=== PATIENT | male | born 1955 | race Two or more races ===

== ENCOUNTER 2020-07-18 13:08 | Inpatient (IN) | payer MEDICARE, OTHER ==
[~2020-07-18] VITALS: Ht 177.8 cm; Wt 90.7 kg
[2020-07-18] MEDS ORDERED: Z GUARD REMEDY PASTE 57 GM TUBE TOP PRN (16:30)
[2020-07-18] MEDS ORDERED: ASPI81TA31 PO (16:38)
[2020-07-18] MEDS ORDERED: MEMA28CA5 PO (16:38)
[2020-07-18] MEDS ORDERED: RISP1TAB97 PO (16:38)
[2020-07-18] MEDS ORDERED: FLUT1BLS IH (16:38)
[2020-07-18] MEDS ORDERED: DONE5TAB34 PO (16:38)
[2020-07-18] MEDS ORDERED: CARV12.52 PO (16:38)
[2020-07-18] MEDS ORDERED: FINA5TAB3 PO (16:38)
[2020-07-18] MEDS ORDERED: TAMS-3 PO (16:38)
[2020-07-18] MEDS ORDERED: PANT40TA49 PO (16:38)
[2020-07-18] MEDS ORDERED: AMLO10TA59 PO (16:38)
[2020-07-18] MEDS ORDERED: METF-440 PO (16:38)
[2020-07-18] MEDS ORDERED: ESCI20TA PO (16:38)
[2020-07-18] MEDS ORDERED: DAPA5TAB PO (16:38)
[2020-07-18] MEDS ORDERED: DULA0.75 SQ (16:38)
[2020-07-18 16:39] VITALS: BP 102/57
--- NOTE | 2020-07-18 17:44 | NUR ---
Admitted a 64 years old male pt. from [facility] ambulance at 1615. Pt. A/Ox1-2, responsive to verbal and tactile stimuli, lethargic/sleepy upon arrival. V/S taken per unit policy, pt currently on 2LPM via NC with SpO2 of 96%. Pt. is Qatari speaking but able to understand and respond simple Kazakh. Skin assessment completed, noted with bilateral upper extremity bruising, but otherwise skin is intact. Pt. oriented to unit and staff but requires re-enforcement. Belongings noted with KEG RAISER, brought in clothes, shoes, belt, wallet (NO BRITTON). Safety measures in place. Call light and all frequently used items within pt. reach. Will endorse to oncoming shift accordingly.
--- NOTE | 2020-07-18 19:30 | NUR ---
Received Pt in bed. Alert and oriented x1. O2 at 2 lpm via NC. No complaints presented. Safety and comfort provided. Call light within reach. Will continue to monitor.
[2020-07-18 20:00] VITALS: BP 106/61
[2020-07-18] MEDS: TAMSULOSIN HCL 0.4 MG CAP.SR.24H PO SCH (21:02)
[2020-07-18] MEDS: DONEPEZIL 5 MG TABLET PO SCH (21:02)
[2020-07-18] MEDS: risperiDONE 1 MG TABLET PO SCH (21:02)
[2020-07-19 04:00] VITALS: BP 125/67
--- NOTE | 2020-07-19 06:30 | NUR ---
No acute distress noted. Call light within reach. Safety and comfort provided.
[2020-07-19 07:11] LABS: BASOPHILS % (AUTO) 0.4 % (0.0-2.0); EOSINOPHILS # (AUTO) 0.1 K/uL (0.0-0.7); EOSINOPHILS % (AUTO) 1.3 % (0.0-7.0); HEMATOCRIT 35.3 % (36.7-47.1); LYMPHOCYTES # (AUTO) 2.3 K/uL (20.0-40.0); LYMPHOCYTES % (AUTO) 40.3 % (20.5-51.5); MEAN CORPUSCULAR HGB CONC 34 g/dL (32.5-36.3); MEAN CORPUSCULAR VOLUME 102.7 fL (73.0-96.2); MONOCYTES # (AUTO) 0.8 K/uL (2.0-10.0); MONOCYTES % (AUTO) 13.9 % (0.0-11.0); NEUTROPHILS # (AUTO) 2.6 K/uL (1.8-8.9); NEUTROPHILS % (AUTO) 44.1 % (38.5-71.5); PLATELET COUNT (AUTO) 216 K/uL (152-348); RED BLOOD CELL COUNT(AUTO) 3.43 MIL/uL (4.06-5.63); WHITE BLOOD COUNT (AUTO) 5.8 K/uL (3.6-10.2)
[2020-07-19 07:43] LABS: CREATININE 0.9 mg/dL (0.6-1.3); POTASSIUM 3.5 mmol/L (3.5-5.1)
[2020-07-19] MEDS: PANTOPRAZOLE SODIUM 40 MG TABLET.DR PO SCH (08:18)
[2020-07-19] MEDS: ASPIRIN 81 MG TAB.CHEW PO SCH (08:19)
[2020-07-19] MEDS: METFORMIN HCL 500 MG TABLET PO SCH ×3 (08:19→17:04)
[2020-07-19] MEDS: MEMANTINE HCL 10 MG TABLET PO SCH ×2 (08:19→17:04)
[2020-07-19] MEDS: ESCITALOPRAM OXALATE 10 MG TABLET PO SCH (08:20)
[2020-07-19] MEDS: FINASTERIDE 5 MG TABLET PO SCH (08:20)
[2020-07-19] MEDS: CARVEDILOL 12.5 MG TABLET PO SCH ×2 (08:20→17:04)
[2020-07-19] MEDS: AMLODIPINE 10 MG TABLET PO SCH (08:20)
[2020-07-19] MEDS: FLUTICASONE/VILANTEROL 1 EACH BLST.W.DEV IH SCH (08:23)
[2020-07-19 08:46] VITALS: BP 139/62
[2020-07-19] MEDS ORDERED: Dapagliflozin Propanediol (Farxiga) 5 MG) PO SCH (09:00)
[2020-07-19] MEDS ORDERED: Medication Not On Formulary EA (Memantine HCl (Memantine HCl ER) 28 MG) PO SCH (09:00)
[2020-07-19 15:42] VITALS: BP 125/69
--- NOTE | 2020-07-19 18:30 | NUR ---
Patient remains alert, oriented x 1-2, not in any form of distress, on 2 LPM oxygen via nasal cannula. He denies any pain or discomfort. Patient is compliant with medications and tolerated well. Assisted with his needs promptly. Safety measures and fall precaution observed. Call light and frequently used items placed within patient's reach.
[2020-07-19 20:13] VITALS: BP 118/64
[2020-07-19] MEDS: risperiDONE 1 MG TABLET PO SCH (20:39)
[2020-07-19] MEDS: DONEPEZIL 5 MG TABLET PO SCH (20:39)
[2020-07-19] MEDS: TAMSULOSIN HCL 0.4 MG CAP.SR.24H PO SCH (20:39)
[2020-07-20 04:00] VITALS: BP 133/75
--- NOTE | 2020-07-20 04:00 | NUR ---
Received pt lying in bed, no acute distress noted. Patient is South Sudanese speaking AXOx2, spoke to pt in South Sudanese, Very forgetful needs constant reorientation. Keeps trying to get out of bed to use the restroom very unsteady gait. Assisted pt to the bathroom. All due medications administered and tolerated well. On 2L PRN NC saturation @ 97%. VVS, denies any pain or discomfort at the moment. Safety measures and fall precaution observed. Bed alarm on. Frequent rounds completed. Call light and frequently used items placed within patient's reach. Will continue plan of care
[2020-07-20 08:00] VITALS: BP 115/77
[2020-07-20] MEDS: PANTOPRAZOLE SODIUM 40 MG TABLET.DR PO SCH (09:03)
[2020-07-20] MEDS: FINASTERIDE 5 MG TABLET PO SCH (09:04)
[2020-07-20] MEDS: ESCITALOPRAM OXALATE 10 MG TABLET PO SCH (09:04)
[2020-07-20] MEDS: METFORMIN HCL 500 MG TABLET PO SCH ×3 (09:04→17:46)
[2020-07-20] MEDS: ASPIRIN 81 MG TAB.CHEW PO SCH (09:05)
[2020-07-20] MEDS: CARVEDILOL 12.5 MG TABLET PO SCH ×2 (09:05→16:07)
[2020-07-20] MEDS: AMLODIPINE 10 MG TABLET PO SCH (09:05)
[2020-07-20] MEDS: MEMANTINE HCL 10 MG TABLET PO SCH ×2 (09:06→16:07)
[2020-07-20] MEDS: FLUTICASONE/VILANTEROL 1 EACH BLST.W.DEV IH SCH (09:07)
[2020-07-20 09:53] LABS: THYROID STIMULATING HORMONE 1.333 mIU/mL (0.358-3.740)
[2020-07-20] MEDS ORDERED: FUROSEMIDE 40 MG TABLET PO ONE (14:30)
--- NOTE | 2020-07-20 15:07 | NUR ---
patient noted very restless since morning, trying to get out of bed constantly, kept clean and dry, fluids offered, patient noted with heavy breathing, however saturating at 93% at 2 liter of nasal canula, noted with pitting edema +1 to both lower extremities, CELL POURER Nilsa is aware.
[2020-07-20 16:00] VITALS: BP 109/62
[2020-07-20] MEDS ORDERED: QUETIAPINE FUMARATE 25 MG TABLET PO ONE (16:30)
[2020-07-20] MEDS: NICOTINE 14 MG/24HR PATCH TD SCH (18:47)
[2020-07-20 20:20] VITALS: BP 98/56
[2020-07-20] MEDS: TAMSULOSIN HCL 0.4 MG CAP.SR.24H PO SCH (20:30)
[2020-07-20] MEDS: risperiDONE 1 MG TABLET PO SCH (20:30)
[2020-07-20] MEDS: DONEPEZIL 5 MG TABLET PO SCH (20:30)
[2020-07-21 04:00] VITALS: BP 143/80
--- NOTE | 2020-07-21 07:57 | NUR ---
called lab spoke to Hoang for pending procalcitonin, per marcelo she is gong to call brissa valentine and will call me back.
[2020-07-21 08:09] VITALS: BP 113/56
[2020-07-21] MEDS: FINASTERIDE 5 MG TABLET PO SCH (08:25)
[2020-07-21] MEDS: MEMANTINE HCL 10 MG TABLET PO SCH ×2 (08:25→16:36)
[2020-07-21] MEDS: ASPIRIN 81 MG TAB.CHEW PO SCH (08:25)
[2020-07-21] MEDS: METFORMIN HCL 500 MG TABLET PO SCH ×3 (08:25→16:29)
[2020-07-21] MEDS: ESCITALOPRAM OXALATE 10 MG TABLET PO SCH (08:26)
[2020-07-21] MEDS: CARVEDILOL 12.5 MG TABLET PO SCH ×2 (08:27→16:44)
[2020-07-21] MEDS: AMLODIPINE 10 MG TABLET PO SCH (08:28)
[2020-07-21] MEDS: FLUTICASONE/VILANTEROL 1 EACH BLST.W.DEV IH SCH (08:28)
[2020-07-21] MEDS: PANTOPRAZOLE SODIUM 40 MG TABLET.DR PO SCH (08:33)
[2020-07-21] MEDS: NICOTINE 14 MG/24HR PATCH TD SCH (08:38)
--- NOTE | 2020-07-21 10:00 | NUR ---
patient is up in chair, nonlabored breathing, to his baseline, ate his breakfast with minimum assist, participating with PT, and OT services. no vomiting, no chills or fever noted.
[2020-07-21 15:58] VITALS: BP 118/44
--- NOTE | 2020-07-21 16:10 | NUR ---
noted redness and shiny skin on patient's left antecubital arm. Nilsa Kelley NP noted and ordered for BACTRIM DS 1 tab PO BID for 5 days. Order carried out.
--- NOTE | 2020-07-21 16:49 | NUR ---
patient is n bed, to his baseline, trying to get up from bed by himself, saturating at 93% at 3 liter of o2 via nasal canula, tried incentive spirometer, patient did not follow instructions for spirometer, noted with wet cough during meals, patient is on speech therapy, thickened liquids and aspiration precautions, patient sat up in chair during meals. continue to monitor.
[2020-07-21] MEDS: SULFAMETH/TRIMETH 800/160 MG TABLET PO SCH (16:52)
--- NOTE | 2020-07-21 19:09 | NUR ---
dr martínez made aware about consult
[2020-07-21 20:48] VITALS: BP 103/59
[2020-07-21] MEDS: risperiDONE 1 MG TABLET PO SCH (21:12)
[2020-07-21] MEDS: TAMSULOSIN HCL 0.4 MG CAP.SR.24H PO SCH (21:12)
[2020-07-21] MEDS: DONEPEZIL 5 MG TABLET PO SCH (21:12)
--- NOTE | 2020-07-22 03:47 | NUR ---
AAOx2-3 Compliant with care and meds. Generalized weakness noted. Fall precautions maintained. VSS. Aspiration precautions maintained. On ABT for cellulitis on the left arm. Psych eval to Dr Jordan. On O2 @ 2L via nasal cannula. pulse ox 95%. Incontinent of urine and BM. Kept clean and dry. Will monitor patient.
[2020-07-22 04:00] VITALS: BP 103/58
--- NOTE | 2020-07-22 06:33 | NUR ---
End of shift notes: Slept well most of the shift. Needs attended. Repositioned for comfort. Turned to sides. VSS. Incontinent of urine x3. Will monitor patient.
--- NOTE | 2020-07-22 07:30 | NUR ---
Received pt in bed, arousable to verbal and tactile stimuli, A&Ox1-2. Omani speaking, reorientation and redirection needed. No acute distress noted. Pt on 3 LPM NC, no SOB, respirations even. Aspiration precautions, safety measures, fall precautions in place. Call light and belongings within reach. Will continue to monitor.
[2020-07-22 08:00] VITALS: BP 111/49
[2020-07-22] MEDS: METFORMIN HCL 500 MG TABLET PO SCH ×3 (08:55→18:46)
[2020-07-22] MEDS: ASPIRIN 81 MG TAB.CHEW PO SCH ×2 (08:56→11:47)
--- NOTE | 2020-07-22 10:45 | NUR ---
After physical therapy session, pt noted in bed lethargic, slow to respond to verbal and tactile stimuli. VS taken: BP 138/66, HR 83, Temp 98.1, Resp 20, O2 sat to mid 80s on 3 L NC. HOB elevated, O2 sat improved to 95% on 5 L NC. WAITER/WAITRESS COCKTAIL LOUNGE Nilsa Kelley on unit and aware, new orders given. Will monitor closely.
[2020-07-22] MEDS: FINASTERIDE 5 MG TABLET PO SCH (11:46)
[2020-07-22] MEDS: MEMANTINE HCL 10 MG TABLET PO SCH ×2 (11:47→17:33)
[2020-07-22] MEDS: ESCITALOPRAM OXALATE 10 MG TABLET PO SCH (11:47)
[2020-07-22] MEDS: AMLODIPINE 10 MG TABLET PO SCH (11:50)
[2020-07-22] MEDS: NICOTINE 14 MG/24HR PATCH TD SCH (11:51)
[2020-07-22] MEDS: PANTOPRAZOLE SODIUM 40 MG TABLET.DR PO SCH (11:51)
[2020-07-22] MEDS: CARVEDILOL 12.5 MG TABLET PO SCH ×2 (11:51→17:39)
[2020-07-22] MEDS: FLUTICASONE/VILANTEROL 1 EACH BLST.W.DEV IH SCH (11:52)
[2020-07-22] MEDS: SULFAMETH/TRIMETH 800/160 MG TABLET PO SCH (12:16)
[2020-07-22] MEDS: FUROSEMIDE 20 MG TABLET PO SCH (15:08)
[2020-07-22] MEDS: VANCOMYCIN IV 1,250 MG in IV DEXTROSE 5% 250 ML IV SCH (16:00)
[2020-07-22 16:33] VITALS: BP 115/49
--- NOTE | 2020-07-22 19:30 | NUR ---
EOSS: Pt in bed, awake, A&Ox1-2, able to make simple needs known. No acute distress noted, no SOB. Pt O2 sat 94% on 3 L NC. VSS. R Hand 22 gauge IV started, patent and intact. IV Vancomycin administered per order, no a/r noted. Pt compliant with medications and care, no a/r noted. Frequent redirection and reorientation implemented PRN. Kept pt clean and dry throughout shift. Safety measures, aspiration precautions, fall precautions maintained. Call light within reach. Will endorse care to patent litigation associate.
[2020-07-22] MEDS: DONEPEZIL 5 MG TABLET PO SCH (20:19)
[2020-07-22] MEDS: TAMSULOSIN HCL 0.4 MG CAP.SR.24H PO SCH (20:19)
[2020-07-22] MEDS: risperiDONE 1 MG TABLET PO SCH (20:19)
--- NOTE | 2020-07-22 20:30 | NUR ---
Pt received resting in bed. PT is on 3L NC sating at 91%. Does not appear to be in any distress. Pt pulled out his IV, another attempt to start IV will be made. Bed is locked and in lowest position. No other issues or concerns at this time.
[2020-07-22 21:24] VITALS: BP 110/52
[2020-07-23] MEDS: VANCOMYCIN IV 1,250 MG in IV DEXTROSE 5% 250 ML IV SCH (02:25)
[2020-07-23 06:06] VITALS: BP 109/62
[2020-07-23 07:37] LABS: CREATININE 1.9 mg/dL (0.6-1.3)
[2020-07-23 08:30] VITALS: BP 124/62
[2020-07-23 09:00] VITALS: BP 92/43
[2020-07-23] MEDS: AMLODIPINE 10 MG TABLET PO SCH (09:00)
[2020-07-23] MEDS: CARVEDILOL 12.5 MG TABLET PO SCH (09:00)
--- NOTE | 2020-07-23 09:10 | NUR ---
During PT session, pt appeared disoriented, lethargic, slow to respond to verbal and tactile stimuli. Per PT max assist for activity, O2 desaturation to 85% on 3 L NC while up in chair. VS taken: BP 92/43, HR 72, Temp 98.0, Resp 20, O2 sat to 90% on 4 L NC. 0900 blood pressure medications held. SECURITIES TELLER Nilsa Kelley on unit and aware, pt to be admitted to Telemetry unit. Will monitor pt closely with safety measures, fall precautions, aspiration precautions maintained.
[2020-07-23 09:23] LABS: CREATININE 1.9 mg/dL (0.6-1.3); MAGNESIUM 1.6 mg/dL (1.8-2.4); PHOSPHOROUS 3.8 mg/dL (2.5-4.9); POTASSIUM 4.1 mmol/L (3.5-5.1)
[2020-07-23 09:23] LABS: *BILIRUBIN,URIN NEGATIVE (NEGATIVE); *BLOOD, URINE 2+ (NEGATIVE); *CLARITY,URINE SLIGHTLY CLOUDY (CLEAR); *COLOR,URINE YELLOW (YELLOW); *KETONES,URINE NEGATIVE (NEGATIVE); LEUKOCYTE ESTERASE ,URINE NEGATIVE (NEGATIVE); NITRITE, URINE NEGATIVE (NEGATIVE); PH,URINE 5.5 (5.0-8.0); UGLUCOSE NEGATIVE (NEGATIVE)
[2020-07-23 09:51] LABS: BASOPHILS % (AUTO) 0.5 % (0.0-2.0); HEMATOCRIT 36.5 % (36.7-47.1); HEMOGLOBIN 12.3 g/dL (12.5-16.3); LYMPHOCYTES # (AUTO) 1.2 K/uL (20.0-40.0); LYMPHOCYTES % (AUTO) 14.2 % (20.5-51.5); MEAN CORPUSCULAR HEMOGLOBIN 34.3 uug (23.8-33.4); MEAN CORPUSCULAR HGB CONC 34 g/dL (32.5-36.3); MONOCYTES # (AUTO) 0.7 K/uL (2.0-10.0); MONOCYTES % (AUTO) 8.4 % (0.0-11.0); NEUTROPHILS # (AUTO) 6.3 K/uL (1.8-8.9); NEUTROPHILS % (AUTO) 76.9 % (38.5-71.5); PLATELET COUNT (AUTO) 248 K/uL (152-348); RED BLOOD CELL COUNT(AUTO) 3.58 MIL/uL (4.06-5.63); WHITE BLOOD COUNT (AUTO) 8.2 K/uL (3.6-10.2)
[2020-07-23] MEDS: ASPIRIN 81 MG TAB.CHEW PO SCH (09:57)
[2020-07-23] MEDS: MEMANTINE HCL 10 MG TABLET PO SCH (09:57)
[2020-07-23] MEDS: NICOTINE 14 MG/24HR PATCH TD SCH (09:57)
[2020-07-23] MEDS: ESCITALOPRAM OXALATE 10 MG TABLET PO SCH (09:57)
[2020-07-23] MEDS: PANTOPRAZOLE SODIUM 40 MG TABLET.DR PO SCH (09:57)
[2020-07-23] MEDS: FINASTERIDE 5 MG TABLET PO SCH (09:57)
[2020-07-23] MEDS: METFORMIN HCL 500 MG TABLET PO SCH ×2 (09:57→12:17)
[2020-07-23] MEDS: FUROSEMIDE 20 MG TABLET PO SCH (10:05)
[2020-07-23] MEDS: FLUTICASONE/VILANTEROL 1 EACH BLST.W.DEV IH SCH (10:07)
--- NOTE | 2020-07-23 14:59 | NUR ---
Pt to be admitted to Telemetry unit per ROOM SERVICE BELLHOP Nilsa Kelley with dx of sepsis. Pt continues to appear lethargic, disoriented, but responsive to verbal and tactile stimuli. A&Ox1. Current VS: BP 107/64, HR 73, O2 sat 91 on 2.5 L NC, R 20, temp 98.5. R FA 22 g IV patent and intact. Belongings verified and signed for by 2 RNs. Addendum: 07/23/20 at 1518 by THERESE PAYAN RN RN Wallet contents verified and documented by 2 RNs, no weldon. No cell phone documented on belongings list upon admission, no cell phone with pt.
[2020-07-23] MEDS ORDERED: PIPERACILLIN SODIUM/TAZOBACTAM 3.375 G in IV DEXTROSE 5% 50 ML IV SCH (15:00)
[2020-07-23 15:11] LABS: BACTERIA,URINE FEW /HPF (NONE SEEN); SQUAMOUS EPITHELIAL CELL,UR NONE SEEN /HPF (NONE SEEN); URINE AMORPHOUS URATE MANY /HPF; WBC,URINE 0-3 /HPF (0-3)
[2020-07-23 16:08] LABS: *CREATININE,URINE 199.1 mg/dL (30-125); *URINE TOTAL PROTEIN RANDOM 58.5 mg/dL (<150/24HR)
[2020-07-23] MEDS ORDERED: MEMA10TA PO (17:03)
[2020-07-23] MEDS ORDERED: NICO-671 TP (17:03)
[2020-07-23] MEDS ORDERED: FURO-152 PO (17:03)
[2020-07-23] MEDS ORDERED: ZINC113P3 TP (17:03)
[2020-07-24] MEDS ORDERED: VANCOMYCIN IV 1,250 MG in IV DEXTROSE 5% 250 ML IV SCH (03:00)
== END 2020-07-23 15:20 | disposition short-term general hospital (02) | DRG 308 ==
PROVIDERS: ADMIT Physical Medicine & Rehabilitation Pain Medicine; ATTEND Physical Medicine & Rehabilitation Pain Medicine
DX: I48.20 Chronic atrial fibrillation, unspecified (principal); A41.9 Sepsis, unspecified organism; J96.00 Acute respiratory failure, unspecified whether with hypoxia or hypercapnia; J18.9 Pneumonia, unspecified organism; D68.59 Other primary thrombophilia; E44.0 Moderate protein-calorie malnutrition; L03.114 Cellulitis of left upper limb; G93.40 Encephalopathy, unspecified; N17.9 Acute kidney failure, unspecified; N39.0 Urinary tract infection, site not specified; J44.0 Chronic obstructive pulmonary disease with (acute) lower respiratory infection; R53.1 Weakness; D69.59 Other secondary thrombocytopenia; E11.9 Type 2 diabetes mellitus without complications; F03.90 Unspecified dementia, unspecified severity, without behavioral disturbance, psychotic disturbance, mood disturbance, and anxiety; F10.10 Alcohol abuse, uncomplicated; R62.7 Adult failure to thrive; Z20.822 Contact with and (suspected) exposure to COVID-19; I10 Essential (primary) hypertension; T80.29XD Infection following other infusion, transfusion and therapeutic injection, subsequent encounter; D64.9 Anemia, unspecified; F17.210 Nicotine dependence, cigarettes, uncomplicated; N40.0 Benign prostatic hyperplasia without lower urinary tract symptoms; Z68.28 Body mass index [BMI] 28.0-28.9, adult; Z91.81 History of falling; K21.9 Gastro-esophageal reflux disease without esophagitis; G62.9 Polyneuropathy, unspecified
CPT/HCPCS: 36415; 71045; 83735; 83921; 84100; 84156; 84300; 84443; 85025; 87040; C1758; J2543; J7050; J7060

== ENCOUNTER 2020-07-23 15:29 | Inpatient (IN) | payer MEDICARE, OTHER ==
[~2020-07-23] VITALS: Ht 177.8 cm; Wt 90.7 kg
[~2020-07-23 15:29] MED LIST: AMLO10TA59 PO; ASPI81TA31 PO; CARV12.52 PO; DAPA5TAB PO; DONE5TAB34 PO; DULA0.75 SQ; ESCI20TA PO; FINA5TAB3 PO; FLUT1BLS IH; MEMA28CA5 PO; METF-440 PO; PANT40TA49 PO; RISP1TAB97 PO; TAMS-3 PO
--- NOTE | 2020-07-23 15:45 | NUR ---
Admitted this 64 year old male pt from the [facility] Acute Rehab Unit at 1535. Pt A&Ox1, appears lethargic and disoriented but responsive to verbal and tactile stimuli. Namibian speaking, able to respond to simple commands in Russian. VS taken: BP 123/66, HR 77, Resp Rate 20, Temp 98.5. Pt currently on 3.0 L via NC with SpO2 of 94%. Skin assessment completed, noted with L arm redness d/t cellulitis per hx and sacral redness. Pt kept clean and dry, repositioned. Pt able to swallow and take fluids per order, compliant with medications. Aspiration precautions in place. Pt oriented to unit, floor, and staff, however frequent redirection and reoriention needed. Belongings verified and signed by 2 RNs: Clothing, shoes, belt, wallet (NO weldon). Wallet contents verified and valuables form signed by 2 RNs, wallet in safe. Safety measures and fall precautions in place. Call light and belongings within reach. Will monitor closely.
[2020-07-23 16:46] VITALS: BP 130/65
[2020-07-23] MEDS ORDERED: ZINC113P3 TP (17:03)
[2020-07-23] MEDS ORDERED: NICO-671 TP (17:03)
[2020-07-23] MEDS ORDERED: FURO-152 PO (17:03)
[2020-07-23] MEDS ORDERED: MEMA10TA PO (17:03)
[2020-07-23] MEDS ORDERED: IV NS 1000 ML 1,000 ML IV PRN (17:30)
[2020-07-23] MEDS ORDERED: LORAZEPAM 2 MG/1 ML VIAL IV PRN (17:30)
[2020-07-23] MEDS ORDERED: MORPHINE SULFATE 2 MG/1 ML DISP.SYRIN IV PRN (17:30)
[2020-07-23] MEDS ORDERED: ACETAMINOPHEN 325 MG TABLET PO PRN (17:30)
[2020-07-23] MEDS ORDERED: PIPERACILLIN SODIUM/TAZOBACTAM 3.375 G in IV DEXTROSE 5% 50 ML IV SCH (18:00)
[2020-07-23] MEDS: MEMANTINE HCL 10 MG TABLET PO SCH (18:49)
[2020-07-23 20:31] VITALS: BP 103/99
[2020-07-23] MEDS ORDERED: MEROPENEM 500 MG in IV NORMAL SALINE 50 ML IV SCH (21:00)
[2020-07-23] MEDS ORDERED: DOCUSATE SODIUM 250 MG CAPSULE PO SCH (21:00)
[2020-07-23] MEDS ORDERED: MEROPENEM 500 MG in IV NORMAL SALINE 50 ML IV ONE (21:15)
[2020-07-23] MEDS: DONEPEZIL 5 MG TABLET PO SCH (21:31)
[2020-07-23] MEDS: risperiDONE 1 MG TABLET PO SCH (21:31)
[2020-07-23] MEDS: TAMSULOSIN HCL 0.4 MG CAP.SR.24H PO SCH (21:32)
[2020-07-23] MEDS ORDERED: MEROPENEM 500MG/NS 50ML PB ***ER PYXIS ONLY IV ONE (23:01)
[2020-07-24] VITALS: BP 111/61
--- NOTE | 2020-07-24 | NUR ---
Received pt lying in bed, very restless. 1:1 sitter at bedside. Patient is Cypriot speaking AXOx1-2, spoke to pt in Cypriot, Very forgetful needs constant reorientation. Responsive to verbal and tactile stimuli. Keeps trying to removed NC. VVS, NSR on monitor HR79.on 2.5L NC saturating @90. Started 20G heplock RAC, intact and patent running NS @70cc/hr. All due medications administered and tolerated well, crushed with apple sauce. Aspiration precautions in place. Safety measures and fall precaution observed. Bed alarm on. Call light and frequently used items placed within patient's reach. Will continue plan of care.
--- NOTE | 2020-07-24 00:11 | NUR ---
pt is agitated and keeps trying to remove Oxygen mask. Administered ativan 1mg PRN per nursing judgment. will monitor for effectiveness.
[2020-07-24] MEDS ORDERED: VANCOMYCIN IV 1,250 MG in IV DEXTROSE 5% 250 ML IV SCH ×2 (03:00→21:00)
[2020-07-24 04:00] VITALS: BP 110/62
[2020-07-24 06:47] LABS: BASOPHILS % (AUTO) 0.7 % (0.0-2.0); EOSINOPHILS % (AUTO) 0.3 % (0.0-7.0); HEMATOCRIT 36.1 % (36.7-47.1); HEMOGLOBIN 12.2 g/dL (12.5-16.3); LYMPHOCYTES # (AUTO) 1.3 K/uL (20.0-40.0); LYMPHOCYTES % (AUTO) 22.2 % (20.5-51.5); MEAN CORPUSCULAR HEMOGLOBIN 34.1 uug (23.8-33.4); MEAN CORPUSCULAR HGB CONC 34 g/dL (32.5-36.3); MEAN CORPUSCULAR VOLUME 101.3 fL (73.0-96.2); MONOCYTES # (AUTO) 0.7 K/uL (2.0-10.0); MONOCYTES % (AUTO) 11.9 % (0.0-11.0); NEUTROPHILS # (AUTO) 3.9 K/uL (1.8-8.9); NEUTROPHILS % (AUTO) 64.9 % (38.5-71.5); PLATELET COUNT (AUTO) 230 K/uL (152-348); RED BLOOD CELL COUNT(AUTO) 3.56 MIL/uL (4.06-5.63)
[2020-07-24 07:11] LABS: BILIRUBIN,TOTAL 0.4 mg/dL (0.2-1.0); CREATININE 1.5 mg/dL (0.6-1.3); MAGNESIUM 1.8 mg/dL (1.8-2.4); POTASSIUM 3.7 mmol/L (3.5-5.1); TOTAL PROTEIN, SERUM 6.6 g/dL (6.4-8.2)
--- NOTE | 2020-07-24 07:30 | NUR ---
Received patient is bed. Patient is lethargic but does follow some commands. Speech is unclear and their is a slight facial droop. Patient is on 6L facial mask. No sign of distress noted . Titrating down to 2L NC. Safety precautions are in place. Will continue to monitor.
[2020-07-24 08:00] VITALS: BP 119/62
[2020-07-24] MEDS: ESCITALOPRAM OXALATE 10 MG TABLET PO SCH (08:37)
[2020-07-24] MEDS: MEMANTINE HCL 10 MG TABLET PO SCH ×2 (08:37→18:28)
[2020-07-24] MEDS: MEROPENEM 1 G in IV NORMAL SALINE 100 ML IV SCH ×3 (08:37→23:32)
[2020-07-24] MEDS: FLUTICASONE/VILANTEROL 1 EACH BLST.W.DEV IH SCH (08:38)
[2020-07-24] MEDS: PANTOPRAZOLE SODIUM 40 MG TABLET.DR PO SCH (08:38)
[2020-07-24] MEDS: ASPIRIN 81 MG TAB.CHEW PO SCH (08:38)
[2020-07-24] MEDS: NICOTINE 14 MG/24HR PATCH TD SCH (08:38)
[2020-07-24] MEDS: FINASTERIDE 5 MG TABLET PO SCH (08:38)
[2020-07-24] MEDS ORDERED: PANTOPRAZOLE SODIUM 40 MG TABLET.DR PO SCH (09:00)
--- NOTE | 2020-07-24 10:51 | NUR ---
Patient is sedated. Tried arousing to sternal rub. Made MD aware. Patient is schedule to fro MRI of head and brain with and without contrast at [facility] at 1330. Will continue to monitor.
[2020-07-24] MEDS: IV NS 1000 ML 1,000 ML IV SCH (11:59)
[2020-07-24 12:06] LABS: ABG BASE EXCESS -1.1 mmol/L; ABG HCO3 23.3 mmol/L; ABG PCO2 37.9 mmHg (35.0-45.0); ABG PH 7.406 (7.350-7.450); ABG PO2 71.9 mmHg (75.0-100.0); ABG SITE RIGHT RADIAL; ABG TOTAL HEMOGLOBIN 12.5 G/dL (13.5-18.0); COHb 0.7 % (0.5-1.5); MetHb 0.1 % (0.0-1.5); O2Hb 92.4 % (94.0-97.0); VENT MODE Nasal Cannula 2.5L
--- NOTE | 2020-07-24 12:06 | NUR ---
Wound care nurse came to assess patient. discoloration and edema on the buttocks. With some blanching redness on the sacrum. Will apply z-guard and cover with Mepilex. Will continue to monitor.
--- NOTE | 2020-07-24 12:09 | NUR ---
WOUND CARE CONSULT: PT PRESENTS WITH EDEMA AND DISCOLORATION TO BUTTOCKS AND LEFT BUTTOCK OPEN SKIN, PRESENT ON ADMISSION. RECOMMENDATIONS MADE FOR SKIN PROTECTION. DISCUSSED WITH NURSING STAFF. FIRST STEP LOW AIRLOSS MATTRESS ORDERED. IN AGREEMENT WITH PLAN OF CARE. Addendum: 07/24/20 at 1210 by CRISTIANE JASMINE RN Amended: Links added.
--- NOTE | 2020-07-24 14:00 | NUR ---
Used Pharmacist Per Diem phone to help inform patient about MRI and ask question off the checklist since patient is a little more awake now. Jere automation tender # [id number]. Will continue to monitor.
[2020-07-24 15:03] VITALS: BP 107/69
--- NOTE | 2020-07-24 16:01 | NUR ---
Patient is off the floor. Transported via ambulance to [facility] for MRI with and without contrast. Will continue to monitor when back on the floor.
--- NOTE | 2020-07-24 18:27 | NUR ---
Patient back on the floor. Will continue to monitor.
--- NOTE | 2020-07-24 19:28 | NUR ---
Patient is resting in bed. No sig of distress noted. Gave all medications as ordered. Safety measures are in place. Will endorse to oncoming nurse.
[2020-07-24 19:41] VITALS: BP 112/68
[2020-07-24] MEDS: TAMSULOSIN HCL 0.4 MG CAP.SR.24H PO SCH (20:56)
[2020-07-24] MEDS: risperiDONE 1 MG TABLET PO SCH (20:56)
[2020-07-24] MEDS: DONEPEZIL 5 MG TABLET PO SCH (20:56)
[2020-07-24] MEDS: DOCUSATE SODIUM 100 MG CAPSULE PO SCH (20:57)
[2020-07-25] VITALS: BP 115/52
[2020-07-25] MEDS: IV NS 1000 ML 1,000 ML IV SCH (01:20)
[2020-07-25 04:49] VITALS: BP 115/81
--- NOTE | 2020-07-25 05:36 | NUR ---
Patient awake responsive to verbal and tactile stimuli.HOB elevated.Aspiration precaution observed.O2 inhalation at 2LPM via NC saturating at 97 %.No s/s of distress noted.No episodes of agitation or combative behavior through out the shift. Patient is Calm and cooperative.Midline on left upper arm 18g patent and intact.Administered IV ATb as ordered.No a/r noted.Due meds given.IVF running at 75ml/hr tolerated well.Wound care provided on buttocks area.Changed and Repositioned patient. All needs anticipated and met accordingly.VSS
[2020-07-25] MEDS: PANTOPRAZOLE SODIUM 40 MG TABLET.DR PO SCH (06:13)
[2020-07-25 07:02] LABS: BASOPHILS % (AUTO) 0.5 % (0.0-2.0); EOSINOPHILS % (AUTO) 0.5 % (0.0-7.0); HEMATOCRIT 34.2 % (36.7-47.1); HEMOGLOBIN 11.5 g/dL (12.5-16.3); LYMPHOCYTES # (AUTO) 1.6 K/uL (20.0-40.0); MEAN CORPUSCULAR HEMOGLOBIN 33.9 uug (23.8-33.4); MEAN CORPUSCULAR HGB CONC 34 g/dL (32.5-36.3); MEAN CORPUSCULAR VOLUME 101.2 fL (73.0-96.2); MONOCYTES # (AUTO) 0.9 K/uL (2.0-10.0); MONOCYTES % (AUTO) 14.1 % (0.0-11.0); NEUTROPHILS # (AUTO) 3.7 K/uL (1.8-8.9); NEUTROPHILS % (AUTO) 58.9 % (38.5-71.5); PLATELET COUNT (AUTO) 223 K/uL (152-348); RED BLOOD CELL COUNT(AUTO) 3.38 MIL/uL (4.06-5.63); WHITE BLOOD COUNT (AUTO) 6.3 K/uL (3.6-10.2)
[2020-07-25 07:27] VITALS: BP 105/59
[2020-07-25 07:27] LABS: BILIRUBIN,TOTAL 0.4 mg/dL (0.2-1.0); CREATININE 1.2 mg/dL (0.6-1.3); MAGNESIUM 1.6 mg/dL (1.8-2.4); PHOSPHOROUS 2.9 mg/dL (2.5-4.9); POTASSIUM 3.9 mmol/L (3.5-5.1); TOTAL PROTEIN, SERUM 6.3 g/dL (6.4-8.2)
[2020-07-25] MEDS: ESCITALOPRAM OXALATE 10 MG TABLET PO SCH (08:07)
[2020-07-25] MEDS: MEMANTINE HCL 10 MG TABLET PO SCH ×2 (08:07→16:24)
[2020-07-25] MEDS: FINASTERIDE 5 MG TABLET PO SCH (08:07)
[2020-07-25] MEDS: MEROPENEM 1 G in IV NORMAL SALINE 100 ML IV SCH ×2 (08:07→16:18)
[2020-07-25] MEDS: ASPIRIN 81 MG TAB.CHEW PO SCH (08:07)
[2020-07-25] MEDS: NICOTINE 14 MG/24HR PATCH TD SCH (08:07)
[2020-07-25] MEDS: FLUTICASONE/VILANTEROL 1 EACH BLST.W.DEV IH SCH (08:08)
[2020-07-25] MEDS ORDERED: MAGNESIUM OXIDE 400 MG TABLET PO ONE (09:15)
[2020-07-25 11:33] VITALS: BP 115/53
[2020-07-25 11:58] LABS: BAND % (MANUAL) 1 % (0-10); LYMPHOCYTES % (MANUAL) 31 % (20-40); MONOCYTES % (MANUAL) 10 % (2-10); NEUTROPHILS % (MANUAL) 58 % (42-75)
[2020-07-25] MEDS: VANCOMYCIN IV 1,500 MG in IV DEXTROSE 5% 500 ML IV SCH (14:38)
[2020-07-25 15:50] VITALS: BP 125/62
--- NOTE | 2020-07-25 18:30 | NUR ---
MEDICATION GIVEN PRESCRIBED. VSS. 1:1 SITTER AT BEDSIDE. SAFETY PRECAUTIONS IN PLACE. ALL NEEDS MET AT THIS TIME.
[2020-07-25 20:09] VITALS: BP 121/69
[2020-07-25] MEDS: DONEPEZIL 5 MG TABLET PO SCH (21:51)
[2020-07-25] MEDS: risperiDONE 1 MG TABLET PO SCH (21:51)
[2020-07-25] MEDS: DOCUSATE SODIUM 100 MG CAPSULE PO SCH (21:51)
[2020-07-25] MEDS: TAMSULOSIN HCL 0.4 MG CAP.SR.24H PO SCH (21:51)
[2020-07-26 00:06] VITALS: BP 115/56
[2020-07-26] MEDS: MEROPENEM 1 G in IV NORMAL SALINE 100 ML IV SCH ×4 (00:32→23:39)
--- NOTE | 2020-07-26 01:30 | NUR ---
Patient awake responsive resting in bed. Axox3, Macedonian speaking. Spoke to pt in Macedonian, responsive states "feeling better" . All due medication administered and tolerated well crushed with pudding. Aspiration precaution observed. VSS on 3L NC no SOB noted saturating @95%.No s/s of distress noted. Denies any pain at the moment. Pt is calm/cooperative no agitation noted. Midline on left upper arm 18g patent and intact, flushed. Administered IV ATb as ordered.No a/r noted.Wound care provided on buttocks area. Turned and repositioned for comfort. Kept clean and dry. Attended to all needs. 1:1 sitter @bedside. Safety measures maintained. Will continue plan of care.
[2020-07-26 04:52] VITALS: BP 128/61
[2020-07-26] MEDS: PANTOPRAZOLE SODIUM 40 MG TABLET.DR PO SCH (06:25)
--- NOTE | 2020-07-26 07:24 | NUR ---
Patient is awake and responsive to stimuli. No respiratory distress noted. No agitation noted. No facial grimacing noted. IZZY Iv intact and tolerating Iv hydration. On 3 Lpm via nc. Spo2 noted 95%. No labored breathing. Patient is kept comfortable. Call light within reach. Will continue to monitor.
[2020-07-26 07:34] VITALS: BP 120/55
[2020-07-26 07:37] LABS: BASOPHILS # (AUTO) 0.1 K/uL (0.0-8.0); BASOPHILS % (AUTO) 0.9 % (0.0-2.0); EOSINOPHILS % (AUTO) 0.5 % (0.0-7.0); HEMOGLOBIN 11.6 g/dL (12.5-16.3); LYMPHOCYTES % (AUTO) 29.9 % (20.5-51.5); MEAN CORPUSCULAR HEMOGLOBIN 34.1 uug (23.8-33.4); MEAN CORPUSCULAR HGB CONC 34 g/dL (32.5-36.3); MEAN CORPUSCULAR VOLUME 100.4 fL (73.0-96.2); MONOCYTES # (AUTO) 0.6 K/uL (2.0-10.0); MONOCYTES % (AUTO) 9.4 % (0.0-11.0); NEUTROPHILS # (AUTO) 3.9 K/uL (1.8-8.9); NEUTROPHILS % (AUTO) 59.3 % (38.5-71.5); PLATELET COUNT (AUTO) 216 K/uL (152-348); RED BLOOD CELL COUNT(AUTO) 3.39 MIL/uL (4.06-5.63); WHITE BLOOD COUNT (AUTO) 6.6 K/uL (3.6-10.2)
[2020-07-26 07:46] LABS: POTASSIUM 3.9 mmol/L (3.5-5.1)
[2020-07-26 08:03] LABS: MAGNESIUM 1.5 mg/dL (1.8-2.4); PHOSPHOROUS 2.5 mg/dL (2.5-4.9)
[2020-07-26] MEDS: MEMANTINE HCL 10 MG TABLET PO SCH ×2 (08:41→16:08)
[2020-07-26] MEDS: NICOTINE 14 MG/24HR PATCH TD SCH (08:41)
[2020-07-26] MEDS: FINASTERIDE 5 MG TABLET PO SCH (08:42)
[2020-07-26] MEDS: ASPIRIN 81 MG TAB.CHEW PO SCH (08:42)
[2020-07-26] MEDS: METOPROLOL SUCCINATE XL 25 MG TAB.SR.24H PO SCH (08:43)
[2020-07-26] MEDS: ESCITALOPRAM OXALATE 10 MG TABLET PO SCH (08:45)
[2020-07-26] MEDS: MAGNESIUM SULFATE/D5W 100 ML IV SCH ×2 (10:04→11:42)
[2020-07-26 10:49] VITALS: BP 108/54
[2020-07-26] MEDS: FLUTICASONE/VILANTEROL 1 EACH BLST.W.DEV IH SCH (10:53)
[2020-07-26] MEDS: VANCOMYCIN IV 1,500 MG in IV DEXTROSE 5% 500 ML IV SCH (11:47)
[2020-07-26 14:16] VITALS: BP 135/62
--- NOTE | 2020-07-26 19:45 | NUR ---
Received patient in bed, asleep, easily arousable to name and touch. On oxygen at 3LPM saturating at 98%, no s/s of respiratory distress, no pain or discomfort noted. Safety measures initiated, call light within reach. Will continue to monitor
[2020-07-26 20:02] VITALS: BP 137/67
[2020-07-26] MEDS: DONEPEZIL 5 MG TABLET PO SCH (21:17)
[2020-07-26] MEDS: DOCUSATE SODIUM 100 MG CAPSULE PO SCH (21:17)
[2020-07-26] MEDS: risperiDONE 1 MG TABLET PO SCH (21:17)
[2020-07-26] MEDS: TAMSULOSIN HCL 0.4 MG CAP.SR.24H PO SCH (21:17)
[2020-07-27 00:17] VITALS: BP 132/70
[2020-07-27] MEDS ORDERED: VANCOMYCIN HCL 500 MG VIAL ONE (02:42)
[2020-07-27] MEDS ORDERED: VANCOMYCIN 1000 MG VIAL ONE (02:42)
[2020-07-27 04:00] VITALS: BP 129/65
[2020-07-27] MEDS: VANCOMYCIN IV 1,500 MG in IV DEXTROSE 5% 500 ML IV SCH (04:48)
[2020-07-27] MEDS: PANTOPRAZOLE SODIUM 40 MG TABLET.DR PO SCH (06:29)
--- NOTE | 2020-07-27 06:50 | NUR ---
Pt awake and responsive, no s/s of respiratory distress, still on oxygen 3LPM via NC saturating 95%, no pain or discomfort noted. Pt unsteady with ambulation, requires minimum assist in ambulating. safety measures in place, call light within reach, wound dressing changed, all needs attended.
[2020-07-27 06:51] LABS: CREATININE 0.9 mg/dL (0.6-1.3); MAGNESIUM 1.6 mg/dL (1.8-2.4); POTASSIUM 3.7 mmol/L (3.5-5.1)
[2020-07-27] MEDS: MEMANTINE HCL 10 MG TABLET PO SCH (10:00)
[2020-07-27] MEDS: ESCITALOPRAM OXALATE 10 MG TABLET PO SCH (10:00)
[2020-07-27] MEDS: ASPIRIN 81 MG TAB.CHEW PO SCH (10:00)
[2020-07-27] MEDS: FINASTERIDE 5 MG TABLET PO SCH (10:00)
[2020-07-27] MEDS: METOPROLOL SUCCINATE XL 25 MG TAB.SR.24H PO SCH (10:01)
[2020-07-27] MEDS: MEROPENEM 1 G in IV NORMAL SALINE 100 ML IV SCH (10:12)
[2020-07-27] MEDS: MAGNESIUM SULFATE/D5W 100 ML IV SCH ×2 (10:12→12:10)
[2020-07-27] MEDS: FLUTICASONE/VILANTEROL 1 EACH BLST.W.DEV IH SCH (10:17)
[2020-07-27] MEDS: NICOTINE 14 MG/24HR PATCH TD SCH (10:19)
[2020-07-27 12:00] VITALS: BP 127/69
[2020-07-27] MEDS ORDERED: METO25TA3 PO ×2 (17:36→21:59)
[2020-07-27] MEDS ORDERED: ASPI-866 PO (21:41)
[2020-07-27] MEDS ORDERED: ACET-2154 PO (21:41)
[2020-07-27] MEDS ORDERED: DONE5TAB34 PO (21:41)
[2020-07-27] MEDS ORDERED: DOCU-141 PO (21:41)
[2020-07-27] MEDS ORDERED: RISP1TAB7 PO (21:59)
[2020-07-27] MEDS ORDERED: MEMA10TA56 PO (21:59)
[2020-07-27] MEDS ORDERED: TAMS-3 PO (21:59)
[2020-07-27] MEDS ORDERED: FINA5TAB11 PO (21:59)
[2020-07-27] MEDS ORDERED: ESCI20TA44 PO (21:59)
[2020-07-27] MEDS ORDERED: NICO1PAT44 TD (21:59)
[2020-07-27] MEDS ORDERED: FLUT1BLS IH (21:59)
[2020-07-27] MEDS ORDERED: PANT40TA2 PO (21:59)
== END 2020-07-27 13:53 | DRG 871 ==
LOC: TELE3 15:29
PROC: 05H633Z Insertion of Infusion Device into Left Subclavian Vein, Percutaneous Approach (ICD-10-PCS; principal; 2020-07-24)
PROC: B547ZZA Ultrasonography of Left Subclavian Vein, Guidance (ICD-10-PCS; 2020-07-24)
DX: A41.9 Sepsis, unspecified organism (principal); J96.01 Acute respiratory failure with hypoxia; J69.0 Pneumonitis due to inhalation of food and vomit; G93.41 Metabolic encephalopathy; N17.9 Acute kidney failure, unspecified; I50.32 Chronic diastolic (congestive) heart failure; I48.20 Chronic atrial fibrillation, unspecified; J44.0 Chronic obstructive pulmonary disease with (acute) lower respiratory infection; E44.0 Moderate protein-calorie malnutrition; D53.9 Nutritional anemia, unspecified; D69.59 Other secondary thrombocytopenia; E87.6 Hypokalemia; F03.90 Unspecified dementia, unspecified severity, without behavioral disturbance, psychotic disturbance, mood disturbance, and anxiety; I11.0 Hypertensive heart disease with heart failure; Z86.73 Personal history of transient ischemic attack (TIA), and cerebral infarction without residual deficits; E11.9 Type 2 diabetes mellitus without complications; E88.09 Other disorders of plasma-protein metabolism, not elsewhere classified; Z72.0 Tobacco use; Z68.28 Body mass index [BMI] 28.0-28.9, adult; N40.0 Benign prostatic hyperplasia without lower urinary tract symptoms; R74.01 Elevation of levels of liver transaminase levels; F10.10 Alcohol abuse, uncomplicated; E66.3 Overweight; T50.2X5A Adverse effect of carbonic-anhydrase inhibitors, benzothiadiazides and other diuretics, initial encounter; Y92.89 Other specified places as the place of occurrence of the external cause; Z79.84 Long term (current) use of oral hypoglycemic drugs
CPT/HCPCS: 36415; 36600; 70030-TC; 70450; 70553; 71045; 83550; 83735; 84100; 85025; 93307; G0378; J2060; J2185; J2543; J3370; J3475; J3490; J7030; J7060

== ENCOUNTER 2020-07-27 14:31 | Inpatient (IN) | payer MEDICARE, OTHER ==
[~2020-07-27] VITALS: Ht 177.8 cm; Wt 83.5 kg
[~2020-07-27 14:31] MED LIST changes: -DAPA5TAB PO; -DULA0.75 SQ; +FURO-152 PO; +MEMA10TA PO; -MEMA28CA5 PO; +NICO-671 TP; +ZINC113P3 TP
[2020-07-27 15:37] VITALS: BP 121/60
[2020-07-27] MEDS ORDERED: METO25TA3 PO ×2 (17:36→21:59)
--- NOTE | 2020-07-27 19:20 | NUR ---
Received patient awake and alert, speech is delayed, no s/s of respiratory distress, no pain or discomfort noted, safety measures initiated, call light within reach, will continue to monitor.
[2020-07-27 20:00] VITALS: BP 130/68
[2020-07-27] MEDS ORDERED: DOCU-141 PO (21:41)
[2020-07-27] MEDS ORDERED: ASPI-866 PO (21:41)
[2020-07-27] MEDS ORDERED: ACET-2154 PO (21:41)
[2020-07-27] MEDS ORDERED: DONE5TAB34 PO (21:41)
[2020-07-27] MEDS ORDERED: MEMA10TA56 PO (21:59)
[2020-07-27] MEDS ORDERED: RISP1TAB7 PO (21:59)
[2020-07-27] MEDS ORDERED: FINA5TAB11 PO (21:59)
[2020-07-27] MEDS ORDERED: NICO1PAT44 TD (21:59)
[2020-07-27] MEDS ORDERED: TAMS-3 PO (21:59)
[2020-07-27] MEDS ORDERED: PANT40TA2 PO (21:59)
[2020-07-27] MEDS ORDERED: FLUT1BLS IH (21:59)
[2020-07-27] MEDS ORDERED: ESCI20TA44 PO (21:59)
[2020-07-28 04:00] VITALS: BP 123/66
[2020-07-28] MEDS: PANTOPRAZOLE SODIUM 40 MG TABLET.DR PO SCH (06:29)
--- NOTE | 2020-07-28 07:59 | NUR ---
pt awake and alert, slept through the night, no pain or discomfort noted, no s/s of respiratory distress, all needs attended, safety measures in place.
[2020-07-28 08:35] VITALS: BP 137/56
[2020-07-28] MEDS: ESCITALOPRAM OXALATE 10 MG TABLET PO SCH (10:10)
[2020-07-28] MEDS: AMLODIPINE 10 MG TABLET PO SCH (10:11)
[2020-07-28] MEDS: METFORMIN HCL 500 MG TABLET PO SCH ×3 (10:11→18:02)
[2020-07-28] MEDS: METOPROLOL SUCCINATE XL 25 MG TAB.SR.24H PO SCH (10:11)
[2020-07-28] MEDS: ASPIRIN 81 MG TAB.CHEW PO SCH (10:11)
[2020-07-28] MEDS: MEMANTINE HCL 10 MG TABLET PO SCH ×2 (10:11→18:02)
[2020-07-28] MEDS: FUROSEMIDE 20 MG TABLET PO SCH (10:12)
[2020-07-28] MEDS: NICOTINE 14 MG/24HR PATCH TD SCH (10:12)
[2020-07-28] MEDS: FINASTERIDE 5 MG TABLET PO SCH (10:12)
[2020-07-28] MEDS: FLUTICASONE/VILANTEROL 1 EACH BLST.W.DEV IH SCH (10:25)
[2020-07-28 15:51] VITALS: BP 111/66
--- NOTE | 2020-07-28 19:30 | NUR ---
Received pt in bed, asleep, easily arousable when called or touched, on oxygen 3LPM via NC saturating 94%. no pain or discomfort reported, safety measures in place, call light within reach, will continue to monitor.
[2020-07-28 19:59] VITALS: BP 107/41
[2020-07-28] MEDS: risperiDONE 1 MG TABLET PO SCH (20:48)
[2020-07-28] MEDS: DONEPEZIL 5 MG TABLET PO SCH (20:48)
[2020-07-28] MEDS: DOCUSATE SODIUM 100 MG CAPSULE PO SCH (20:48)
[2020-07-28] MEDS: TAMSULOSIN HCL 0.4 MG CAP.SR.24H PO SCH (20:48)
[2020-07-29 05:05] VITALS: BP 124/62
[2020-07-29] MEDS: PANTOPRAZOLE SODIUM 40 MG TABLET.DR PO SCH (06:18)
--- NOTE | 2020-07-29 06:53 | NUR ---
Pt slept through the night, no s/s of respiratory distress, no pain reported, due medications given as ordered, wound dressing changed, safety measures maintained at all times, call light within reach, all needs attended.
[2020-07-29 08:00] VITALS: BP 117/53
[2020-07-29] MEDS: METFORMIN HCL 500 MG TABLET PO SCH ×3 (09:10→17:42)
[2020-07-29] MEDS: FINASTERIDE 5 MG TABLET PO SCH (09:10)
[2020-07-29] MEDS: AMLODIPINE 10 MG TABLET PO SCH (09:10)
[2020-07-29] MEDS: METOPROLOL SUCCINATE XL 25 MG TAB.SR.24H PO SCH (09:10)
[2020-07-29] MEDS: ASPIRIN 81 MG TAB.CHEW PO SCH (09:10)
[2020-07-29] MEDS: ESCITALOPRAM OXALATE 10 MG TABLET PO SCH (09:11)
[2020-07-29] MEDS: FUROSEMIDE 20 MG TABLET PO SCH (09:11)
[2020-07-29] MEDS: NICOTINE 14 MG/24HR PATCH TD SCH (09:11)
[2020-07-29] MEDS: MEMANTINE HCL 10 MG TABLET PO SCH ×2 (09:11→17:33)
[2020-07-29] MEDS: FLUTICASONE/VILANTEROL 1 EACH BLST.W.DEV IH SCH (09:19)
--- NOTE | 2020-07-29 14:00 | NUR ---
Patient in bed, alert and oriented x 2, able to make needs known, denies of any pain, call light placed within reach VS WNL. Skin warm to touch. On oxygen via nasal cannula @ 3LPM via NC saturating @ 96% no s/s of distress. Assisted to the bathroom twice able to void with no discomfort. All due meds given as ordered and tolerated well. Call light placed within reach. All needs met promptly. Left and right buttocks kept clean and dry. Apply Mepelex as ordered.
[2020-07-29 16:05] VITALS: BP 112/53
[2020-07-29 19:54] VITALS: BP 109/67
[2020-07-29] MEDS: DONEPEZIL 5 MG TABLET PO SCH (21:20)
[2020-07-29] MEDS: DOCUSATE SODIUM 100 MG CAPSULE PO SCH (21:20)
[2020-07-29] MEDS: risperiDONE 1 MG TABLET PO SCH (21:20)
[2020-07-29] MEDS: TAMSULOSIN HCL 0.4 MG CAP.SR.24H PO SCH (21:20)
--- NOTE | 2020-07-29 23:00 | NUR ---
Patient awake and responsive resting in bed. Axox3, Gibraltarian speaking. Spoke to pt in Gibraltarian, able to make needs known. All due medication administered and tolerated well swallowing whole pill. Aspiration precaution observed. VSS on 3L NC no SOB noted saturating @97%.No s/s of distress noted. Denies any pain at the moment. Pt is calm/cooperative. Midline on left upper arm 18g patent and intact, flushed. Wound care provided on buttocks area. Turned and repositioned for comfort. Kept clean and dry. Attended to all needs. Bed alarm on. Assisted pt to the bathroom with walker, slightly unsteady gait noticed. Safety measures maintained. Will continue to monitor throughout the night.
[2020-07-30 05:00] VITALS: BP 118/59
[2020-07-30] MEDS: PANTOPRAZOLE SODIUM 40 MG TABLET.DR PO SCH (06:19)
[2020-07-30 07:30] VITALS: BP 108/69
[2020-07-30] MEDS: AMLODIPINE 10 MG TABLET PO SCH (09:00)
[2020-07-30] MEDS: METOPROLOL SUCCINATE XL 25 MG TAB.SR.24H PO SCH (09:00)
[2020-07-30] MEDS: FINASTERIDE 5 MG TABLET PO SCH (09:03)
[2020-07-30] MEDS: ESCITALOPRAM OXALATE 10 MG TABLET PO SCH (09:03)
[2020-07-30] MEDS: MEMANTINE HCL 10 MG TABLET PO SCH ×2 (09:03→17:13)
[2020-07-30] MEDS: FUROSEMIDE 20 MG TABLET PO SCH (09:03)
[2020-07-30] MEDS: ASPIRIN 81 MG TAB.CHEW PO SCH (09:03)
[2020-07-30] MEDS: METFORMIN HCL 500 MG TABLET PO SCH ×3 (09:04→17:13)
[2020-07-30] MEDS: FLUTICASONE/VILANTEROL 1 EACH BLST.W.DEV IH SCH (09:09)
[2020-07-30] MEDS: NICOTINE 14 MG/24HR PATCH TD SCH (09:10)
--- NOTE | 2020-07-30 12:58 | NUR ---
WOUND CARE CONSULT: PT PRESENTS WITH LESIONS WITH PEELING SKIN TO BUTTOCKS, PRESENT ON ADMISSION. FIRMNESS NOTED TO RT BUTTOCK AREA. RECOMMEND SURGICAL CONSULT. DR CHRISTEN ACEVEDO NOTIFIED. ALL SKIN PROTECTION RECOMMENDATIONS DISCUSSED WITH NURSING STAFF. MD IN AGREEMENT WITH PLAN OF CARE.
[2020-07-30] MEDS ORDERED: Z GUARD REMEDY PASTE 57 GM TUBE TOP PRN (13:00)
--- NOTE | 2020-07-30 14:29 | NUR ---
INDIVIDUALIZED PLAN OF CARE
[2020-07-30 16:00] VITALS: BP 158/69
[2020-07-30] MEDS: CLOTRIMAZOLE 1% CREAM 30 GM TUBE TOP SCH (17:18)
[2020-07-30 20:06] VITALS: BP 112/73
[2020-07-30] MEDS: risperiDONE 1 MG TABLET PO SCH (21:52)
[2020-07-30] MEDS: DOCUSATE SODIUM 100 MG CAPSULE PO SCH (21:52)
[2020-07-30] MEDS: DONEPEZIL 5 MG TABLET PO SCH (21:52)
[2020-07-30] MEDS: TAMSULOSIN HCL 0.4 MG CAP.SR.24H PO SCH (21:52)
[2020-07-30] MEDS: Z GUARD REMEDY PASTE 57 GM TUBE TOP SCH (21:53)
--- NOTE | 2020-07-31 05:17 | NUR ---
Pt slept intermittently throughout the night, no s/s of respiratory distress, no pain reported, due medications given as ordered, wound care provided. VSS. Pt continuously gets out of bed to use the restroom.Pt is fall risk, bed alarm on at all times. Assisted pt to the bathroom multiple times with walker. Safety measures maintained at all times, call light within reach, all needs attended. Will continue plan of care.
[2020-07-31 06:01] VITALS: BP 115/48
[2020-07-31] MEDS: PANTOPRAZOLE SODIUM 40 MG TABLET.DR PO SCH (06:19)
[2020-07-31] MEDS: ESCITALOPRAM OXALATE 10 MG TABLET PO SCH (08:22)
[2020-07-31] MEDS: AMLODIPINE 10 MG TABLET PO SCH (08:22)
[2020-07-31] MEDS: MEMANTINE HCL 10 MG TABLET PO SCH ×2 (08:22→16:55)
[2020-07-31] MEDS: ASPIRIN 81 MG TAB.CHEW PO SCH (08:22)
[2020-07-31] MEDS: FUROSEMIDE 20 MG TABLET PO SCH (08:22)
[2020-07-31] MEDS: METFORMIN HCL 500 MG TABLET PO SCH ×3 (08:22→17:00)
[2020-07-31] MEDS: FINASTERIDE 5 MG TABLET PO SCH (08:23)
[2020-07-31] MEDS: NICOTINE 14 MG/24HR PATCH TD SCH (08:23)
[2020-07-31] MEDS: METOPROLOL SUCCINATE XL 25 MG TAB.SR.24H PO SCH (08:23)
[2020-07-31] MEDS: FLUTICASONE/VILANTEROL 1 EACH BLST.W.DEV IH SCH (08:32)
[2020-07-31 08:33] VITALS: BP 135/53
[2020-07-31] MEDS: CLOTRIMAZOLE 1% CREAM 30 GM TUBE TOP SCH ×2 (08:37→16:56)
[2020-07-31] MEDS: Z GUARD REMEDY PASTE 57 GM TUBE TOP SCH ×2 (09:36→20:36)
--- NOTE | 2020-07-31 14:02 | NUR ---
pt pull Addendum: 07/31/20 at 1408 by RUPESH CLOUDN pt pulled out midline when getting out of bed to the bathroom. site not bleeding placed pressure dressing on site. patient remains alert no pain or discomfort of any sort. charge nurse made aware
[2020-07-31 15:39] VITALS: BP 128/63
--- NOTE | 2020-07-31 19:06 | NUR ---
End shift report: pt laying in bed comfort. satting well on oxygen. Fall precautions in place. bed alarm on, call light in reach
[2020-07-31 20:09] VITALS: BP 118/64
[2020-07-31] MEDS: DOCUSATE SODIUM 100 MG CAPSULE PO SCH (20:36)
[2020-07-31] MEDS: DONEPEZIL 5 MG TABLET PO SCH (20:36)
[2020-07-31] MEDS: TAMSULOSIN HCL 0.4 MG CAP.SR.24H PO SCH (20:36)
[2020-07-31] MEDS: risperiDONE 1 MG TABLET PO SCH (20:36)
--- NOTE | 2020-08-01 | NUR ---
INTERDISCIPLINARY TEAM CONFERENCE
[2020-08-01 04:09] VITALS: BP 132/64
[2020-08-01] MEDS: PANTOPRAZOLE SODIUM 40 MG TABLET.DR PO SCH (06:31)
--- NOTE | 2020-08-01 06:46 | NUR ---
Pt rested well in between care;no acute distress; repositioned for comfort; removed 1st step mattress because of high fall risk; dressing changed to sacrum; safety maintained; continue to monitor; continue plan of care.
[2020-08-01 08:00] VITALS: BP 126/72
--- NOTE | 2020-08-01 08:15 | NUR ---
PATIENT IS AWAKE ALERT COOPERATIVE ASSISTED AND SAT UP AT THE EDGE OF THE BED ATE BREAKFAST WITH SET UP WITH FAIR APPETITE AND WAS THEN ASSISTED INTO THE W/CHAIR BY THE PHYSICAL THERAPY WITH O2 AT 2L/M AND TAKEN DOWN TO THE REHAB GYM FOR THERAPY LEFT AND RIGHT BUTTOCKS WOUND WITH MEPILEX INTACT NOT IN DISTRESS AT THIS TIME.
[2020-08-01] MEDS: ASPIRIN 81 MG TAB.CHEW PO SCH (08:28)
[2020-08-01] MEDS: FINASTERIDE 5 MG TABLET PO SCH (08:28)
[2020-08-01] MEDS: AMLODIPINE 10 MG TABLET PO SCH (08:32)
[2020-08-01] MEDS: ESCITALOPRAM OXALATE 10 MG TABLET PO SCH (08:32)
[2020-08-01] MEDS: FLUTICASONE/VILANTEROL 1 EACH BLST.W.DEV IH SCH (08:33)
[2020-08-01] MEDS: FUROSEMIDE 20 MG TABLET PO SCH (08:38)
[2020-08-01] MEDS: METOPROLOL SUCCINATE XL 25 MG TAB.SR.24H PO SCH (08:38)
[2020-08-01] MEDS: MEMANTINE HCL 10 MG TABLET PO SCH ×2 (08:38→17:30)
[2020-08-01] MEDS: NICOTINE 14 MG/24HR PATCH TD SCH (08:38)
[2020-08-01] MEDS: METFORMIN HCL 500 MG TABLET PO SCH ×3 (08:38→17:30)
[2020-08-01] MEDS: Z GUARD REMEDY PASTE 57 GM TUBE TOP SCH ×2 (08:43→20:37)
[2020-08-01] MEDS: CLOTRIMAZOLE 1% CREAM 30 GM TUBE TOP SCH ×2 (08:47→17:31)
--- NOTE | 2020-08-01 09:30 | NUR ---
MICHELLE ACCOUNTING ASSOCIATE FROM [facility] HERE AND SEEN PATIENT WITH NEW ORDERS AND NOTED
--- NOTE | 2020-08-01 10:00 | NUR ---
PATIENT RETURNED BACK FROM THE PHYSICAL THERAPY GYM WALKING WITH THE FRONT WHEEL WALKER TO HIS ROOM AND SEATED ON THE CHAIR HE IS CURRENTLY ON ROOM AIR PER THE PHYSICAL THERAPIST PATIENT WAS SATING 95 PERCENT ON ROOM AIR SO HE REMOVED HIS O2 WILL CONTINUE TO OBSERVE AND WILL RECHECK THE SATS.
--- NOTE | 2020-08-01 11:09 | NUR ---
WOUND CARE FOLLOW UP: PT SEEN FOR FOLLOW UP OF LESIONS ON RT AND LEFT BUTTOCK, PRESENT ON ADMISSION. RT BUTTOCK LESION IS NOW PINK AND YELLOW IN COLOR WITH SCANT SEROUS DRAINAGE, NO ODOR. RT BUTTOCK IS SLIGHTLY FIRM TO TOUCH BUT NO ERYTHEMA, WARMTH OR TENDERNESS. LEFT BUTTOCK LESION IMPROVING AND IS PINK IN COLOR. RECOMMEND CONTINUE PRESENT TREATMENT. SECOND MSG LEFT FOR DR CHRISTEN ACEVEDO FOR SURGICAL CONSULT.
[2020-08-01 16:07] VITALS: BP 110/54
--- NOTE | 2020-08-01 18:00 | NUR ---
PT FED SELF FOR DINNER WITH GOOD APPETITE. ASSISTED TO BATHROOM AMBULATORY WITH FRONT WHEEL WALKER. SLOW STEADY GAIT. REMAINS ON RA WITH NO SOB. WILL CONTINUE TO OBSERVE.
--- NOTE | 2020-08-01 19:05 | NUR ---
CRISTIAN FERMIN PORCELAIN ENAMELING SUPERVISOR HERE TO SEE PATIENT RE SACRAL WOUND WITH NO NEW ORDERS AT THIS TIME
[2020-08-01] MEDS ORDERED: LIDOCAINE-MPF 1% 5 ML AMPUL MC PRN (19:45)
--- NOTE | 2020-08-01 19:45 | NUR ---
Sleeping during initial rounds. No s/s of pain/discomforts. Safety measures and fall prevention maintained. Continue care as planned.
--- NOTE | 2020-08-01 20:25 | NUR ---
Seen and assessed by Juli Zuleta Np Wound debridement schedule for tomorrow. Consent signed.
[2020-08-01 20:27] VITALS: BP 119/67
[2020-08-01] MEDS: DOCUSATE SODIUM 100 MG CAPSULE PO SCH (20:36)
[2020-08-01] MEDS: risperiDONE 1 MG TABLET PO SCH (20:36)
[2020-08-01] MEDS: TAMSULOSIN HCL 0.4 MG CAP.SR.24H PO SCH (20:36)
[2020-08-01] MEDS: DONEPEZIL 5 MG TABLET PO SCH (20:37)
[2020-08-02 04:00] VITALS: BP 105/62
[2020-08-02 06:18] LABS: BASOPHILS # (AUTO) 0.1 K/uL (0.0-8.0); EOSINOPHILS # (AUTO) 0.1 K/uL (0.0-0.7); EOSINOPHILS % (AUTO) 2.2 % (0.0-7.0); HEMATOCRIT 34.9 % (36.7-47.1); HEMOGLOBIN 11.8 g/dL (12.5-16.3); LYMPHOCYTES # (AUTO) 2.2 K/uL (20.0-40.0); LYMPHOCYTES % (AUTO) 35.5 % (20.5-51.5); MEAN CORPUSCULAR HEMOGLOBIN 33.6 uug (23.8-33.4); MEAN CORPUSCULAR HGB CONC 34 g/dL (32.5-36.3); MEAN CORPUSCULAR VOLUME 99.2 fL (73.0-96.2); MONOCYTES # (AUTO) 0.6 K/uL (2.0-10.0); MONOCYTES % (AUTO) 10.1 % (0.0-11.0); NEUTROPHILS # (AUTO) 3.2 K/uL (1.8-8.9); NEUTROPHILS % (AUTO) 51.2 % (38.5-71.5); PLATELET COUNT (AUTO) 253 K/uL (152-348); RED BLOOD CELL COUNT(AUTO) 3.51 MIL/uL (4.06-5.63); WHITE BLOOD COUNT (AUTO) 6.2 K/uL (3.6-10.2)
--- NOTE | 2020-08-02 06:22 | NUR ---
Shift End Report: Slept well. No complaint presented all night. Continue current rehab plan of care.
[2020-08-02] MEDS: PANTOPRAZOLE SODIUM 40 MG TABLET.DR PO SCH (06:26)
[2020-08-02 06:48] LABS: CREATININE 0.8 mg/dL (0.6-1.3); POTASSIUM 3.5 mmol/L (3.5-5.1)
[2020-08-02] MEDS ORDERED: LIDOCAINE-MPF 1% 5 ML AMPUL MC PRN (08:00)
[2020-08-02 08:15] VITALS: BP 103/41
[2020-08-02] MEDS: ESCITALOPRAM OXALATE 10 MG TABLET PO SCH (08:43)
[2020-08-02] MEDS: FUROSEMIDE 20 MG TABLET PO SCH (08:43)
[2020-08-02] MEDS: NICOTINE 14 MG/24HR PATCH TD SCH (08:43)
[2020-08-02] MEDS: ASPIRIN 81 MG TAB.CHEW PO SCH (08:43)
[2020-08-02] MEDS: METFORMIN HCL 500 MG TABLET PO SCH ×3 (08:44→17:01)
[2020-08-02] MEDS: FINASTERIDE 5 MG TABLET PO SCH (08:44)
[2020-08-02] MEDS: AMLODIPINE 10 MG TABLET PO SCH (08:44)
[2020-08-02] MEDS: MEMANTINE HCL 10 MG TABLET PO SCH ×2 (08:44→16:30)
[2020-08-02] MEDS: FLUTICASONE/VILANTEROL 1 EACH BLST.W.DEV IH SCH (08:45)
[2020-08-02] MEDS: METOPROLOL SUCCINATE XL 25 MG TAB.SR.24H PO SCH (08:45)
[2020-08-02] MEDS: CLOTRIMAZOLE 1% CREAM 30 GM TUBE TOP SCH ×2 (08:46→16:33)
[2020-08-02] MEDS: Z GUARD REMEDY PASTE 57 GM TUBE TOP SCH ×2 (08:46→20:24)
--- NOTE | 2020-08-02 15:07 | NUR ---
Patient is alert,oriented x3, verbally responsive, no sob,Resp even nonlabored, skin warm and dry to touch, patient is ambulatory, reassessed for both buttocks, left buttock wound bed is red and slough, periwound is red, no drainage or odor noted, right buttock wound bed is red and with slough, no drainage noted, no odor noted, patient teaching provided to lay on his side to prevent the pressure, the plan is to debride the wound tomorrow by wound BOOT TURNER. no changes noted during shift.
[2020-08-02 15:23] VITALS: BP 148/67
--- NOTE | 2020-08-02 19:45 | NUR ---
Sleeping during initial rounds. No s/s of respiratory distress. Safety measures and fall prevention maintained. Continue care as planned.
[2020-08-02 20:00] VITALS: BP 129/70
[2020-08-02] MEDS: DOCUSATE SODIUM 100 MG CAPSULE PO SCH (20:23)
[2020-08-02] MEDS: risperiDONE 1 MG TABLET PO SCH (20:23)
[2020-08-02] MEDS: TAMSULOSIN HCL 0.4 MG CAP.SR.24H PO SCH (20:23)
[2020-08-02] MEDS: DONEPEZIL 5 MG TABLET PO SCH (20:24)
[2020-08-03 04:00] VITALS: BP 105/65
--- NOTE | 2020-08-03 05:42 | NUR ---
Shift End Report: No significant event reported all night. Slept good. No complaint presented throughout the night.
[2020-08-03] MEDS: PANTOPRAZOLE SODIUM 40 MG TABLET.DR PO SCH (06:11)
[2020-08-03 08:00] VITALS: BP 142/59
[2020-08-03] MEDS: FINASTERIDE 5 MG TABLET PO SCH (10:56)
[2020-08-03] MEDS: METFORMIN HCL 500 MG TABLET PO SCH ×3 (10:56→17:32)
[2020-08-03] MEDS: ASPIRIN 81 MG TAB.CHEW PO SCH (10:57)
[2020-08-03] MEDS: ESCITALOPRAM OXALATE 10 MG TABLET PO SCH (10:58)
[2020-08-03] MEDS: METOPROLOL SUCCINATE XL 25 MG TAB.SR.24H PO SCH (10:58)
[2020-08-03] MEDS: AMLODIPINE 10 MG TABLET PO SCH (10:59)
[2020-08-03] MEDS: MEMANTINE HCL 10 MG TABLET PO SCH ×2 (10:59→17:31)
[2020-08-03] MEDS: FUROSEMIDE 20 MG TABLET PO SCH (10:59)
[2020-08-03] MEDS: NICOTINE 14 MG/24HR PATCH TD SCH (11:00)
[2020-08-03] MEDS: CLOTRIMAZOLE 1% CREAM 30 GM TUBE TOP SCH ×2 (11:00→17:32)
[2020-08-03] MEDS: FLUTICASONE/VILANTEROL 1 EACH BLST.W.DEV IH SCH (11:01)
[2020-08-03] MEDS: Z GUARD REMEDY PASTE 57 GM TUBE TOP SCH ×2 (11:01→20:30)
[2020-08-03 15:24] VITALS: BP 124/68
[2020-08-03 19:38] VITALS: BP 107/50
[2020-08-03] MEDS: DONEPEZIL 5 MG TABLET PO SCH (20:29)
[2020-08-03] MEDS: DOCUSATE SODIUM 100 MG CAPSULE PO SCH (20:29)
[2020-08-03] MEDS: TAMSULOSIN HCL 0.4 MG CAP.SR.24H PO SCH (20:29)
[2020-08-03] MEDS: risperiDONE 1 MG TABLET PO SCH (20:29)
--- NOTE | 2020-08-03 21:26 | NUR ---
resting in bed upon initial rounds. AAOx3-4 Forgetful at times. Needs attended. Compliant with meds. VSS. No behavioral issues noted. Continent of bowel and bladder. Denies any pain nor any discomfort. Will monitor patient. Call boyd within reach.
[2020-08-04 05:13] VITALS: BP 107/48
[2020-08-04] MEDS: PANTOPRAZOLE SODIUM 40 MG TABLET.DR PO SCH (06:12)
--- NOTE | 2020-08-04 06:49 | NUR ---
End of shift notes: Slept well most of the shift. Needs attended. All due meds given. Voiding well. No complaints presented during shift.Will monitor patient. VSS.
[2020-08-04 07:39] VITALS: BP 113/60
[2020-08-04] MEDS: FUROSEMIDE 20 MG TABLET PO SCH (08:01)
[2020-08-04] MEDS: ASPIRIN 81 MG TAB.CHEW PO SCH (08:01)
[2020-08-04] MEDS: AMLODIPINE 10 MG TABLET PO SCH (08:02)
[2020-08-04] MEDS: NICOTINE 14 MG/24HR PATCH TD SCH (08:02)
[2020-08-04] MEDS: FINASTERIDE 5 MG TABLET PO SCH (08:02)
[2020-08-04] MEDS: METFORMIN HCL 500 MG TABLET PO SCH (08:02)
[2020-08-04] MEDS: MEMANTINE HCL 10 MG TABLET PO SCH ×2 (08:02→17:45)
[2020-08-04] MEDS: METOPROLOL SUCCINATE XL 25 MG TAB.SR.24H PO SCH (08:02)
[2020-08-04] MEDS: ESCITALOPRAM OXALATE 10 MG TABLET PO SCH (08:02)
[2020-08-04] MEDS: FLUTICASONE/VILANTEROL 1 EACH BLST.W.DEV IH SCH (08:04)
[2020-08-04] MEDS: CLOTRIMAZOLE 1% CREAM 30 GM TUBE TOP SCH ×2 (08:05→17:45)
[2020-08-04] MEDS: Z GUARD REMEDY PASTE 57 GM TUBE TOP SCH ×2 (08:05→20:26)
[2020-08-04] MEDS: DONEPEZIL 5 MG TABLET PO SCH (20:26)
[2020-08-04] MEDS: DOCUSATE SODIUM 100 MG CAPSULE PO SCH (20:26)
[2020-08-04] MEDS: risperiDONE 1 MG TABLET PO SCH (20:26)
[2020-08-04] MEDS: TAMSULOSIN HCL 0.4 MG CAP.SR.24H PO SCH (20:26)
[2020-08-04 20:27] VITALS: BP 108/58
--- NOTE | 2020-08-05 01:47 | NUR ---
AAOx3-4 OOB to the BR with walker. Voiding well. Compliant with meds and care. Needs attended. No complaints presented so far. VSS. Fall precautions maintained. Dressing intact to bilateral buttocks. Will monitor patient.
[2020-08-05 04:45] VITALS: BP 111/47
[2020-08-05] MEDS: PANTOPRAZOLE SODIUM 40 MG TABLET.DR PO SCH (06:12)
[2020-08-05 06:58] LABS: BASOPHILS # (AUTO) 0.1 K/uL (0.0-8.0); BASOPHILS % (AUTO) 0.8 % (0.0-2.0); EOSINOPHILS # (AUTO) 0.2 K/uL (0.0-0.7); EOSINOPHILS % (AUTO) 2.5 % (0.0-7.0); HEMATOCRIT 36.3 % (36.7-47.1); HEMOGLOBIN 12.4 g/dL (12.5-16.3); LYMPHOCYTES # (AUTO) 2.5 K/uL (20.0-40.0); MEAN CORPUSCULAR HEMOGLOBIN 33.8 uug (23.8-33.4); MEAN CORPUSCULAR HGB CONC 34 g/dL (32.5-36.3); MEAN CORPUSCULAR VOLUME 99.2 fL (73.0-96.2); MONOCYTES # (AUTO) 0.5 K/uL (2.0-10.0); MONOCYTES % (AUTO) 7.2 % (0.0-11.0); NEUTROPHILS # (AUTO) 4.1 K/uL (1.8-8.9); NEUTROPHILS % (AUTO) 55.5 % (38.5-71.5); PLATELET COUNT (AUTO) 257 K/uL (152-348); RED BLOOD CELL COUNT(AUTO) 3.66 MIL/uL (4.06-5.63); WHITE BLOOD COUNT (AUTO) 7.3 K/uL (3.6-10.2)
[2020-08-05 07:30] VITALS: BP 99/55
[2020-08-05 07:43] LABS: BILIRUBIN,TOTAL 0.7 mg/dL (0.2-1.0); CREATININE 1.1 mg/dL (0.6-1.3); MAGNESIUM 1.6 mg/dL (1.8-2.4); PHOSPHOROUS 4.7 mg/dL (2.5-4.9); POTASSIUM 4.2 mmol/L (3.5-5.1); TOTAL PROTEIN, SERUM 6.6 g/dL (6.4-8.2)
[2020-08-05] MEDS: ESCITALOPRAM OXALATE 10 MG TABLET PO SCH (07:59)
[2020-08-05] MEDS: GLIMEPIRIDE 2 MG TABLET PO SCH (07:59)
[2020-08-05] MEDS: NICOTINE 14 MG/24HR PATCH TD SCH (07:59)
[2020-08-05] MEDS: AMLODIPINE 10 MG TABLET PO SCH (08:00)
[2020-08-05] MEDS: ASPIRIN 81 MG TAB.CHEW PO SCH (08:00)
[2020-08-05] MEDS: MEMANTINE HCL 10 MG TABLET PO SCH ×2 (08:00→16:17)
[2020-08-05] MEDS: FINASTERIDE 5 MG TABLET PO SCH (08:00)
[2020-08-05] MEDS: FUROSEMIDE 20 MG TABLET PO SCH (08:00)
[2020-08-05] MEDS: Z GUARD REMEDY PASTE 57 GM TUBE TOP SCH ×2 (08:03→21:29)
[2020-08-05] MEDS: CLOTRIMAZOLE 1% CREAM 30 GM TUBE TOP SCH ×2 (08:03→16:18)
[2020-08-05] MEDS: FLUTICASONE/VILANTEROL 1 EACH BLST.W.DEV IH SCH (08:03)
[2020-08-05] MEDS ORDERED: MAGNESIUM OXIDE 400 MG TABLET PO ONE (08:30)
[2020-08-05 15:30] VITALS: BP 136/63
--- NOTE | 2020-08-05 19:45 | NUR ---
Patient in bed, alert and oriented x 2, able to make needs known, denies of any pain, call light placed within reach VS WNL. Skin warm to touch, needs anticipated.
[2020-08-05] MEDS: risperiDONE 1 MG TABLET PO SCH (20:30)
[2020-08-05] MEDS: DONEPEZIL 5 MG TABLET PO SCH (20:31)
[2020-08-05] MEDS: TAMSULOSIN HCL 0.4 MG CAP.SR.24H PO SCH (20:31)
[2020-08-05] MEDS: DOCUSATE SODIUM 100 MG CAPSULE PO SCH (20:31)
[2020-08-05 20:38] VITALS: BP 120/67
[2020-08-06 04:58] VITALS: BP 107/55
[2020-08-06] MEDS: PANTOPRAZOLE SODIUM 40 MG TABLET.DR PO SCH (06:50)
--- NOTE | 2020-08-06 07:30 | NUR ---
Patient awake and responsive resting in bed. Axox3, Turkish speaking. and little bit Citizen Of [place], able to make needs known. Aspiration precaution observed. VSS Denies any pain at the moment. Pt is calm/cooperative. Attended to all needs. Bed alarm on Safety measures maintained. Will continue to monitor throughout the shift
[2020-08-06 08:00] VITALS: BP 122/67
[2020-08-06] MEDS: NICOTINE 14 MG/24HR PATCH TD SCH (08:05)
[2020-08-06] MEDS: ESCITALOPRAM OXALATE 10 MG TABLET PO SCH (08:05)
[2020-08-06] MEDS: MEMANTINE HCL 10 MG TABLET PO SCH ×2 (08:05→16:05)
[2020-08-06] MEDS: CLOTRIMAZOLE 1% CREAM 30 GM TUBE TOP SCH (08:06)
[2020-08-06] MEDS: FINASTERIDE 5 MG TABLET PO SCH (08:06)
[2020-08-06] MEDS: ASPIRIN 81 MG TAB.CHEW PO SCH (08:06)
[2020-08-06] MEDS: GLIMEPIRIDE 2 MG TABLET PO SCH (08:06)
[2020-08-06] MEDS: AMLODIPINE 10 MG TABLET PO SCH (08:06)
[2020-08-06] MEDS: FUROSEMIDE 20 MG TABLET PO SCH (08:06)
[2020-08-06] MEDS: Z GUARD REMEDY PASTE 57 GM TUBE TOP SCH ×2 (08:07→21:30)
[2020-08-06] MEDS: FLUTICASONE/VILANTEROL 1 EACH BLST.W.DEV IH SCH (08:28)
--- NOTE | 2020-08-06 08:50 | NUR ---
pt is working with OT
[2020-08-06 09:15] VITALS: BP 117/58
--- NOTE | 2020-08-06 09:15 | NUR ---
pt went to the restroom, unwitnessed patient found on floor on his way back from the restroom. Bleeding noted on back of the head, bump noted on the right side of the head. MD notified. Charge nurse and drying unit felting machine operator notified. Order received for CT of head. VSS: 117/58, HR 88, 98 F, 96% on RA, RR 20. Patient states he felt dizzy prior to fall. Post-fall assessment done. Body check post-fall done. MD aware.
--- NOTE | 2020-08-06 09:22 | NUR ---
ct head done per md orders report send to
[2020-08-06 10:15] VITALS: BP 116/67
--- NOTE | 2020-08-06 10:51 | NUR ---
pt resting in his bed axox3 vs are stable ice pack applied ,and pt said he is fine
--- NOTE | 2020-08-06 11:10 | NUR ---
WOUND CARE FOLLOW UP: PT SEEN FOR RE-EVALUATION OF BUTTOCK WOUNDS, PRESENT ON ADMISSION. THERE IS MILD ODOR AND SOME GREENISH PURULENT DRAINAGE AT THIS TIME. RECOMMEND IVONNE. DISCUSSED WITH NURSING STAFF AND CRISTIAN SURGICAL NURSE, CURRENTLY ON CASE. PT ALSO NOTED TO HAVE DRY ABRASIONS TO BACK OF HEAD. DRY DRESSING NOTED IN PLACE. IN AGREEMENT WITH PLAN OF CARE. Addendum: 08/06/20 at 1113 by CRISTIANE JASMINE RN Amended: Links added.
[2020-08-06] MEDS: SODIUM HYPOCHLORITE 0.125% (QUARTER STRENGTH) 473 ML BOTTLE TP SCH (12:50)
--- NOTE | 2020-08-06 12:58 | NUR ---
wound dressing change per orders
[2020-08-06] MEDS: ACETAMINOPHEN 325 MG TABLET PO PRN ×2 (15:29→22:04)
[2020-08-06 16:26] VITALS: BP 135/71
--- NOTE | 2020-08-06 19:26 | NUR ---
Patient AXOX3 resting in bed S/P fall no change in LOC PERRLA, RA 02 sat 95% no c/o pain or distress at this time.bed in lowest position safety measures initiated. Call light in reach.
[2020-08-06 20:00] VITALS: BP 113/67
[2020-08-06] MEDS: TAMSULOSIN HCL 0.4 MG CAP.SR.24H PO SCH (21:27)
[2020-08-06] MEDS: DOCUSATE SODIUM 100 MG CAPSULE PO SCH (21:27)
[2020-08-06] MEDS: risperiDONE 1 MG TABLET PO SCH (21:27)
[2020-08-06] MEDS: DONEPEZIL 5 MG TABLET PO SCH (21:27)
[2020-08-07 04:00] VITALS: BP 119/63
[2020-08-07] MEDS: PANTOPRAZOLE SODIUM 40 MG TABLET.DR PO SCH (06:14)
--- NOTE | 2020-08-07 06:27 | NUR ---
Shift End Report: Vs stable. Always trying to get out /sit at the edge of bed to use the urinal, voiding good. No complaint presented. Posterior head dressings dry and intact. Safety measures and fall prevention maintained. Close visual and physical monitoring rendered for safety. All needs attended and met. No significant event reported all night. Continue current rehab plan of care
--- NOTE | 2020-08-07 07:30 | NUR ---
Received patient resting on bed. No sign of distress noted at this time. Checked to confirm that patient's bed alarm is activated. Patient has a contusion on his head from fall. Patient is on room air. Safety precautions are in place. Will continue to monitor.
[2020-08-07] MEDS: MEMANTINE HCL 10 MG TABLET PO SCH ×2 (08:34→17:45)
[2020-08-07] MEDS: GLIMEPIRIDE 2 MG TABLET PO SCH (08:34)
[2020-08-07] MEDS: ASPIRIN 81 MG TAB.CHEW PO SCH (08:34)
[2020-08-07] MEDS: FINASTERIDE 5 MG TABLET PO SCH (08:34)
[2020-08-07] MEDS: FUROSEMIDE 20 MG TABLET PO SCH (08:35)
[2020-08-07] MEDS: ESCITALOPRAM OXALATE 10 MG TABLET PO SCH (08:35)
[2020-08-07] MEDS: NICOTINE 14 MG/24HR PATCH TD SCH (08:35)
[2020-08-07] MEDS: FLUTICASONE/VILANTEROL 1 EACH BLST.W.DEV IH SCH (08:35)
[2020-08-07] MEDS: AMLODIPINE 10 MG TABLET PO SCH (08:36)
[2020-08-07] MEDS: Z GUARD REMEDY PASTE 57 GM TUBE TOP SCH ×2 (08:36→20:18)
[2020-08-07] MEDS: SODIUM HYPOCHLORITE 0.125% (QUARTER STRENGTH) 473 ML BOTTLE TP SCH (08:37)
[2020-08-07 08:59] VITALS: BP 132/68
[2020-08-07 15:32] VITALS: BP 124/63
--- NOTE | 2020-08-07 19:23 | NUR ---
Patient is resting in bed. No sign of distress noted. Gave all medications as ordered. Safety precautions are in place. Will endorse to the oncoming nurse.
[2020-08-07] MEDS: risperiDONE 1 MG TABLET PO SCH (20:12)
[2020-08-07] MEDS: DONEPEZIL 5 MG TABLET PO SCH (20:13)
[2020-08-07] MEDS: TAMSULOSIN HCL 0.4 MG CAP.SR.24H PO SCH (20:13)
[2020-08-07] MEDS: DOCUSATE SODIUM 100 MG CAPSULE PO SCH (20:13)
[2020-08-07 20:41] VITALS: BP 130/74
[2020-08-08 04:25] VITALS: BP 121/65
[2020-08-08] MEDS: PANTOPRAZOLE SODIUM 40 MG TABLET.DR PO SCH (06:07)
[2020-08-08 08:00] VITALS: BP 129/76
[2020-08-08] MEDS: GLIMEPIRIDE 2 MG TABLET PO SCH (08:43)
[2020-08-08] MEDS: MEMANTINE HCL 10 MG TABLET PO SCH ×2 (08:43→16:31)
[2020-08-08] MEDS: NICOTINE 14 MG/24HR PATCH TD SCH (08:44)
[2020-08-08] MEDS: AMLODIPINE 10 MG TABLET PO SCH (08:44)
[2020-08-08] MEDS: FINASTERIDE 5 MG TABLET PO SCH (08:44)
[2020-08-08] MEDS: ESCITALOPRAM OXALATE 10 MG TABLET PO SCH (08:44)
[2020-08-08] MEDS: ASPIRIN 81 MG TAB.CHEW PO SCH (08:44)
[2020-08-08] MEDS: FUROSEMIDE 20 MG TABLET PO SCH (08:44)
[2020-08-08] MEDS: Z GUARD REMEDY PASTE 57 GM TUBE TOP SCH ×2 (08:45→20:31)
[2020-08-08] MEDS: SODIUM HYPOCHLORITE 0.125% (QUARTER STRENGTH) 473 ML BOTTLE TP SCH (08:45)
[2020-08-08] MEDS: FLUTICASONE/VILANTEROL 1 EACH BLST.W.DEV IH SCH (08:45)
--- NOTE | 2020-08-08 15:04 | NUR ---
INTERDISCIPLINARY TEAM CONFERENCE
[2020-08-08 16:20] VITALS: BP 128/77
--- NOTE | 2020-08-08 18:09 | NUR ---
Patient is ambulatory, no distress noted, kept safe, head laceration wound is closed, no bleeding noted, no discharge noted, patient is to his baseline, no changes noted, reinforced safety precautions, patient verbalized understanding of, however patient6 needs frequent reminders, monitored closely, needs attended timely
--- NOTE | 2020-08-08 18:16 | NUR ---
buttocks wound tx is done, wound bed noted with yellow slough, periwound is pink, no drainage noted, no odor noted, continue with tx as ordered
[2020-08-08 20:04] VITALS: BP 136/80
[2020-08-08] MEDS: risperiDONE 1 MG TABLET PO SCH (20:28)
[2020-08-08] MEDS: DOCUSATE SODIUM 100 MG CAPSULE PO SCH (20:28)
[2020-08-08] MEDS: TAMSULOSIN HCL 0.4 MG CAP.SR.24H PO SCH (20:28)
[2020-08-08] MEDS: DONEPEZIL 5 MG TABLET PO SCH (20:28)
--- NOTE | 2020-08-08 21:02 | NUR ---
Resting in bed upon initial rounds. AAOx3-4 Fall precautions maintained. Siderails up for safety. OOB to the BR with standby assist. FGait unsteady. Had episodes of confusion or forgetfulness. Easily redirected. Needs attended. Voiding well.
[2020-08-09 04:32] VITALS: BP 124/57
--- NOTE | 2020-08-09 05:39 | NUR ---
End of shift notes: aaox3-4 slept well throughout the night. Vital signs taken and recorded. No acute distress noted. OOB to the BR with supervision. Voiding well. Denies any pain nor any discomfort. Will monitor patient.
[2020-08-09] MEDS: PANTOPRAZOLE SODIUM 40 MG TABLET.DR PO SCH (06:15)
[2020-08-09 07:49] VITALS: BP 125/67
[2020-08-09] MEDS: ASPIRIN 81 MG TAB.CHEW PO SCH (08:47)
[2020-08-09] MEDS: GLIMEPIRIDE 2 MG TABLET PO SCH (08:47)
[2020-08-09] MEDS: ESCITALOPRAM OXALATE 10 MG TABLET PO SCH (08:48)
[2020-08-09] MEDS: NICOTINE 14 MG/24HR PATCH TD SCH (08:48)
[2020-08-09] MEDS: MEMANTINE HCL 10 MG TABLET PO SCH ×2 (08:48→16:26)
[2020-08-09] MEDS: AMLODIPINE 10 MG TABLET PO SCH (08:48)
[2020-08-09] MEDS: FLUTICASONE/VILANTEROL 1 EACH BLST.W.DEV IH SCH (08:48)
[2020-08-09] MEDS: FINASTERIDE 5 MG TABLET PO SCH (08:48)
[2020-08-09] MEDS: FUROSEMIDE 20 MG TABLET PO SCH (08:48)
[2020-08-09] MEDS: Z GUARD REMEDY PASTE 57 GM TUBE TOP SCH ×2 (08:49→20:26)
[2020-08-09] MEDS: SODIUM HYPOCHLORITE 0.125% (QUARTER STRENGTH) 473 ML BOTTLE TP SCH (08:51)
[2020-08-09 15:32] VITALS: BP 143/72
--- NOTE | 2020-08-09 18:20 | NUR ---
Patient alert, oriented x 3, not in any form of distress, on room air, ambulatory. He denies any pain or discomfort. Patient is compliant with medication and tolerated well. Patient participated with PT, OT and tolerated well. Assisted with his needs promptly. Safety measures maintained. Call light and frequently used items placed within patient's reach.
[2020-08-09] MEDS: risperiDONE 1 MG TABLET PO SCH (20:25)
[2020-08-09] MEDS: DOCUSATE SODIUM 100 MG CAPSULE PO SCH (20:25)
[2020-08-09] MEDS: TAMSULOSIN HCL 0.4 MG CAP.SR.24H PO SCH (20:25)
[2020-08-09] MEDS: DONEPEZIL 5 MG TABLET PO SCH (20:25)
[2020-08-09 20:31] VITALS: BP 145/65
[2020-08-10 04:00] VITALS: BP 138/83
[2020-08-10] MEDS: PANTOPRAZOLE SODIUM 40 MG TABLET.DR PO SCH (06:15)
--- NOTE | 2020-08-10 06:30 | NUR ---
Received patient in bed, alert and verbally responsive. Can make needs known. Patient is cooperative with care. Received all due medications, tolerated well. No changes during shift. Wound care done. Fall and safety precautions observed.
[2020-08-10 08:00] VITALS: BP 115/50
[2020-08-10] MEDS: ASPIRIN 81 MG TAB.CHEW PO SCH (08:33)
[2020-08-10] MEDS: AMLODIPINE 10 MG TABLET PO SCH (08:34)
[2020-08-10] MEDS: FINASTERIDE 5 MG TABLET PO SCH (08:34)
[2020-08-10] MEDS: FUROSEMIDE 20 MG TABLET PO SCH (08:34)
[2020-08-10] MEDS: ESCITALOPRAM OXALATE 10 MG TABLET PO SCH (08:34)
[2020-08-10] MEDS: GLIMEPIRIDE 2 MG TABLET PO SCH (08:34)
[2020-08-10] MEDS: NICOTINE 14 MG/24HR PATCH TD SCH (08:35)
[2020-08-10] MEDS: SODIUM HYPOCHLORITE 0.125% (QUARTER STRENGTH) 473 ML BOTTLE TP SCH (08:35)
[2020-08-10] MEDS: MEMANTINE HCL 10 MG TABLET PO SCH ×2 (08:36→16:51)
[2020-08-10] MEDS: Z GUARD REMEDY PASTE 57 GM TUBE TOP SCH ×2 (08:36→20:33)
[2020-08-10] MEDS: FLUTICASONE/VILANTEROL 1 EACH BLST.W.DEV IH SCH (09:00)
[2020-08-10 16:00] VITALS: BP 124/73
[2020-08-10 20:00] VITALS: BP 114/68
[2020-08-10] MEDS: TAMSULOSIN HCL 0.4 MG CAP.SR.24H PO SCH (20:32)
[2020-08-10] MEDS: DONEPEZIL 5 MG TABLET PO SCH (20:32)
[2020-08-10] MEDS: risperiDONE 1 MG TABLET PO SCH (20:32)
[2020-08-10] MEDS: DOCUSATE SODIUM 100 MG CAPSULE PO SCH (20:32)
[2020-08-11 04:00] VITALS: BP 124/55
[2020-08-11] MEDS: PANTOPRAZOLE SODIUM 40 MG TABLET.DR PO SCH (06:10)
[2020-08-11 08:18] VITALS: BP 120/64
[2020-08-11] MEDS: GLIMEPIRIDE 2 MG TABLET PO SCH (08:25)
[2020-08-11] MEDS: ESCITALOPRAM OXALATE 10 MG TABLET PO SCH (08:36)
[2020-08-11] MEDS: ASPIRIN 81 MG TAB.CHEW PO SCH (08:36)
[2020-08-11] MEDS: MEMANTINE HCL 10 MG TABLET PO SCH (08:36)
[2020-08-11] MEDS: FINASTERIDE 5 MG TABLET PO SCH (08:36)
[2020-08-11] MEDS: FUROSEMIDE 20 MG TABLET PO SCH (08:36)
[2020-08-11 08:37] VITALS: BP 120/64
[2020-08-11] MEDS: NICOTINE 14 MG/24HR PATCH TD SCH (08:37)
[2020-08-11] MEDS: AMLODIPINE 10 MG TABLET PO SCH (08:37)
[2020-08-11] MEDS: Z GUARD REMEDY PASTE 57 GM TUBE TOP SCH (08:38)
[2020-08-11] MEDS: SODIUM HYPOCHLORITE 0.125% (QUARTER STRENGTH) 473 ML BOTTLE TP SCH (08:38)
[2020-08-11] MEDS: FLUTICASONE/VILANTEROL 1 EACH BLST.W.DEV IH SCH (09:53)
--- NOTE | 2020-08-11 15:40 | NUR ---
Patient alert and oriented x 3-4. No signs of distress. On Room air. Patient discharged to [facility] via [facility]. Report given to ISRAEL Martines of [facility]. Patient's belongings accounted for and belongings list signed. Discharge instructions and medication list given to patient. ID band removed.
== END 2020-08-11 15:40 | DRG 264 ==
PROVIDERS: ADMIT Physical Medicine & Rehabilitation Pain Medicine; ATTEND Physical Medicine & Rehabilitation Pain Medicine
PROC: 0JB70ZZ Excision of Back Subcutaneous Tissue and Fascia, Open Approach (ICD-10-PCS; principal; 2020-08-03)
DX: I48.20 Chronic atrial fibrillation, unspecified (principal); J96.01 Acute respiratory failure with hypoxia; G92 Toxic encephalopathy; E43 Unspecified severe protein-calorie malnutrition; N17.0 Acute kidney failure with tubular necrosis; I13.0 Hypertensive heart and chronic kidney disease with heart failure and stage 1 through stage 4 chronic kidney disease, or unspecified chronic kidney disease; I50.32 Chronic diastolic (congestive) heart failure; L03.114 Cellulitis of left upper limb; D68.59 Other primary thrombophilia; D53.9 Nutritional anemia, unspecified; D69.59 Other secondary thrombocytopenia; E11.22 Type 2 diabetes mellitus with diabetic chronic kidney disease; J44.9 Chronic obstructive pulmonary disease, unspecified; T80.29XD Infection following other infusion, transfusion and therapeutic injection, subsequent encounter; N40.0 Benign prostatic hyperplasia without lower urinary tract symptoms; N18.9 Chronic kidney disease, unspecified; F10.10 Alcohol abuse, uncomplicated; K21.9 Gastro-esophageal reflux disease without esophagitis; Z91.81 History of falling; E83.42 Hypomagnesemia; E61.1 Iron deficiency; I67.2 Cerebral atherosclerosis; Z68.28 Body mass index [BMI] 28.0-28.9, adult; F01.50 Vascular dementia, unspecified severity, without behavioral disturbance, psychotic disturbance, mood disturbance, and anxiety; I69.398 Other sequelae of cerebral infarction; F17.210 Nicotine dependence, cigarettes, uncomplicated; R53.1 Weakness; S00.03XA Contusion of scalp, initial encounter; W19.XXXA Unspecified fall, initial encounter; Y93.89 Activity, other specified; Y92.238 Other place in hospital as the place of occurrence of the external cause
CPT/HCPCS: 36415; 70450; 83735; 84100; 85025; A4663; J3490

== ENCOUNTER 2021-07-01 19:00 | Inpatient (IN) | payer MEDICARE, OTHER ==
[~2021-07-01] VITALS: Ht 177.8 cm; Wt 86.2 kg
[~2021-07-01 19:00] MED LIST changes: +ACET-2154 PO; +ASPI-866 PO; -CARV12.52 PO; +DOCU-141 PO; +ESCI20TA44 PO; +FINA5TAB11 PO; +MEMA10TA56 PO; +METO25TA3 PO; +NICO1PAT44 TD; +PANT40TA2 PO; +RISP1TAB7 PO
--- NOTE | 2021-07-01 19:30 | NUR ---
RECEIVED PATIENT VIA GURNEY FROM [facility] DIRECT ADMIT TO REHAB. UPON ARRIVAL TO FLOOR, PATIENT IS A/O X3. VSS UPON ADMISSION. DENIES ANY PAIN OR DISCOMFORT. PATIENT ON O2 2L NC SATING 97-98%. HEPLOCK INTACT AND NOTED TO RIGHT HAND AND PICC LINE NOTED TO LEFT UPPER ARM. ORIENTED TO ROOM AND CALL LIGHT. CALL LIGHT IN REACH. ALL NEEDS ATTENDED. BED ALARM ON. WILL CONTINUE TO MONITOR AND ASSESS.
[2021-07-01 20:00] VITALS: BP 110/49
[2021-07-01] MEDS ORDERED: DAPA5TAB PO (21:41)
[2021-07-01] MEDS ORDERED: CEFT1VIA15 IV (21:41)
[2021-07-01] MEDS ORDERED: MEMA28CA5 PO (21:41)
[2021-07-01] MEDS ORDERED: DIGO125T PO (21:41)
[2021-07-01] MEDS ORDERED: FLUT1BLS IH (21:41)
[2021-07-01] MEDS ORDERED: THIA100T74 PO (21:41)
[2021-07-01] MEDS ORDERED: DONE5TAB7 PO (21:41)
[2021-07-01] MEDS ORDERED: ASPI81TA31 PO (21:41)
[2021-07-01] MEDS ORDERED: RISP1TAB7 PO (21:41)
[2021-07-01] MEDS ORDERED: PANT40TA2 PO (21:41)
[2021-07-01] MEDS ORDERED: FINA5TAB11 PO (21:41)
[2021-07-01] MEDS ORDERED: METF-494 PO (21:41)
[2021-07-01] MEDS ORDERED: TAMS-3 PO (21:41)
[2021-07-01] MEDS ORDERED: NICO-625 TP (21:41)
[2021-07-01] MEDS ORDERED: ESCI20TA PO (21:41)
[2021-07-01] MEDS ORDERED: DULA0.75 SQ (21:41)
[2021-07-01] MEDS ORDERED: APIX5TAB4 PO (21:41)
[2021-07-01] MEDS ORDERED: AMLO10TA4 PO (21:41)
[2021-07-02 04:00] VITALS: BP 111/55
--- NOTE | 2021-07-02 05:33 | NUR ---
PATIENT ASLEEP IN BED. SLEPT WELL THROUGHOUT THE NIGHT. CALL LIGHT IN REACH.
[2021-07-02] MEDS ORDERED: CEFT1VIA15 IV (09:59)
[2021-07-02] MEDS ORDERED: THIA100T13 PO (09:59)
[2021-07-02] MEDS ORDERED: NICO-671 TD (09:59)
[2021-07-02] MEDS ORDERED: DEXTROSE 50% 50 ML DISP.SYRIN IV PRN (10:15)
[2021-07-02] MEDS: AMLODIPINE 10 MG TABLET PO SCH (11:00)
[2021-07-02] MEDS: THIAMINE HCL 100 MG TABLET PO SCH (11:10)
[2021-07-02] MEDS: NICOTINE 14 MG/24HR PATCH TD SCH (11:11)
[2021-07-02] MEDS: ASPIRIN 81 MG TAB.CHEW PO SCH (11:11)
[2021-07-02] MEDS: ESCITALOPRAM OXALATE 10 MG TABLET PO SCH (11:11)
[2021-07-02] MEDS: BLOOD SUGAR DIAGNOSTIC 1 EACH STRIP VI SCH ×3 (11:48→20:44)
[2021-07-02] MEDS: APIXABAN 5 MG TABLET PO SCH ×2 (11:49→20:38)
[2021-07-02] MEDS: DIGOXIN 125 MCG TABLET PO SCH (11:51)
[2021-07-02] MEDS: FLUTICASONE/VILANTEROL 1 EACH BLST.W.DEV IH SCH (11:54)
[2021-07-02] MEDS: CEFTRIAXONE 1 G in IV DEXTROSE 5% 50 ML IV SCH (11:54)
[2021-07-02 12:00] VITALS: BP 102/60
[2021-07-02] MEDS: INSULIN REGULAR, HUMAN 300 UNIT/3 ML VIAL SQ PRN ×2 (12:03→20:47)
[2021-07-02] MEDS: FINASTERIDE 5 MG TABLET PO SCH (13:49)
[2021-07-02 16:00] VITALS: BP 112/61
[2021-07-02] MEDS: MEMANTINE HCL 10 MG TABLET PO SCH (17:39)
--- NOTE | 2021-07-02 17:40 | NUR ---
Patient remains alert, oriented x 3, not in any form of distress, on 3LPM via NC. No complain of any pain or discomfort. He participated with therapy, ambulatory with walker. Assisted with his needs. Call light and frequently used items placed within patient's reach. Notified Dr. Mcmanus regarding blood sugar 88 and per MD hold due metformin at this time. PICC line 3 lumen on the left upper arm intact and patent with no signs of infection.
[2021-07-02] MEDS: METFORMIN HCL 500 MG TABLET PO SCH (17:48)
[2021-07-02] MEDS: DONEPEZIL 5 MG TABLET PO SCH (20:37)
[2021-07-02] MEDS: TAMSULOSIN HCL 0.4 MG CAP.SR.24H PO SCH (20:37)
[2021-07-02] MEDS: risperiDONE 1 MG TABLET PO SCH (20:37)
[2021-07-02 20:46] VITALS: BP 114/59
--- NOTE | 2021-07-03 03:58 | NUR ---
AAOx3 On continous O2 @ 3L via nasal cannula. VSS. No acute distress noted. VSS. Kept comfordable. Needs attended. Will monitor patient. Continent of bowel and bladder. Needs attended. Fall precautions maintained. Siderails up safety.
[2021-07-03 04:29] VITALS: BP 104/57
[2021-07-03] MEDS: PANTOPRAZOLE SODIUM 40 MG TABLET.DR PO SCH (06:13)
[2021-07-03] MEDS: BLOOD SUGAR DIAGNOSTIC 1 EACH STRIP VI SCH ×4 (06:39→20:27)
[2021-07-03 06:56] LABS: HEMATOCRIT 40.6 % (36.7-47.1); MEAN CORPUSCULAR HEMOGLOBIN 31.2 uug (23.8-33.4); MEAN CORPUSCULAR VOLUME 93.7 fL (73.0-96.2); PLATELET COUNT (AUTO) 172 K/uL (152-348)
[2021-07-03 07:55] LABS: BILIRUBIN,TOTAL 0.3 mg/dL (0.2-1.0); CREATININE 0.7 mg/dL (0.6-1.3); PHOSPHOROUS 4.5 mg/dL (2.5-4.9); POTASSIUM 3.9 mmol/L (3.5-5.1); TOTAL PROTEIN, SERUM 6.2 g/dL (6.4-8.2)
[2021-07-03 08:00] VITALS: BP 109/62
[2021-07-03] MEDS: METFORMIN HCL 500 MG TABLET PO SCH ×2 (08:20→17:14)
[2021-07-03] MEDS: ASPIRIN 81 MG TAB.CHEW PO SCH (08:20)
[2021-07-03 08:21] LABS: THYROID STIMULATING HORMONE 2.482 mIU/mL (0.358-3.740)
[2021-07-03] MEDS: AMLODIPINE 10 MG TABLET PO SCH (08:22)
[2021-07-03] MEDS: FINASTERIDE 5 MG TABLET PO SCH (08:22)
[2021-07-03] MEDS: MEMANTINE HCL 10 MG TABLET PO SCH ×2 (08:22→16:27)
[2021-07-03] MEDS: APIXABAN 5 MG TABLET PO SCH ×2 (08:23→20:26)
[2021-07-03] MEDS: THIAMINE HCL 100 MG TABLET PO SCH (08:24)
[2021-07-03] MEDS: DIGOXIN 125 MCG TABLET PO SCH (08:24)
[2021-07-03] MEDS: NICOTINE 14 MG/24HR PATCH TD SCH (08:25)
[2021-07-03] MEDS: ESCITALOPRAM OXALATE 10 MG TABLET PO SCH (08:25)
[2021-07-03] MEDS: FLUTICASONE/VILANTEROL 1 EACH BLST.W.DEV IH SCH (08:27)
[2021-07-03] MEDS ORDERED: Medication Not On Formulary EA (Memantine HCl (Memantine HCl ER) 28 MG) PO SCH (09:00)
[2021-07-03] MEDS: CEFTRIAXONE 1 G in IV DEXTROSE 5% 50 ML IV SCH (11:27)
[2021-07-03] MEDS: INSULIN REGULAR, HUMAN 300 UNIT/3 ML VIAL SQ PRN ×2 (11:44→20:26)
--- NOTE | 2021-07-03 15:40 | NUR ---
patient was noted with nasal congestion. Lump on the right arm, warm to touch, redness noted, thick and swollen. Dr Cedillo made aware. MD order Afrin 1-2 puff nasally q12h PRN for nasal congestion, and wound care consult for subcutaneous abscess. Will continue to monitor.
[2021-07-03 16:00] VITALS: BP 124/53
[2021-07-03] MEDS: OXYMETAZOLINE NASAL 0.05% 15 ML SPRAY NS PRN (16:28)
--- NOTE | 2021-07-03 18:18 | NUR ---
patient remained stable during the shift. no distress identified. frequent visual checks done. all due meds and needs attended. kept call light within reach. safety measures maintained. will endorse to the next shift for continuity of care.
[2021-07-03 20:00] VITALS: BP 101/62
[2021-07-03] MEDS: DONEPEZIL 5 MG TABLET PO SCH (20:21)
[2021-07-03] MEDS: risperiDONE 1 MG TABLET PO SCH (20:22)
[2021-07-03] MEDS: TAMSULOSIN HCL 0.4 MG CAP.SR.24H PO SCH (20:22)
--- NOTE | 2021-07-03 23:26 | NUR ---
Received patient sleeping bed. Easily aroused by name and light touch. AAOX3, Burundian speaking with limited Jordanian. Able to make needs known. Currently on 3L O2 via NC, saturating at 97%. Will try to titrate down overnight. IV access on IZZY PICC line and R hand both patent and intact. Patient denies SOB,chest pain or dizziness at this time. Safety measures initiated. Call light button and frequently used items within reach. Will continue to monitor.
[2021-07-04 04:00] VITALS: BP 128/61
[2021-07-04] MEDS: PANTOPRAZOLE SODIUM 40 MG TABLET.DR PO SCH (06:02)
[2021-07-04] MEDS: BLOOD SUGAR DIAGNOSTIC 1 EACH STRIP VI SCH ×4 (06:57→20:00)
--- NOTE | 2021-07-04 07:06 | NUR ---
Patient slept through the night with no complaints. No acute distress noted at this time. Titrated O2. On 2L o2, saturating at 98%. IV access patent and intact. Patient is compliant with medication regimen. Safety measures maintained. Will endorse to dayshift.
[2021-07-04 07:58] VITALS: BP_SYST 125; BP_SYST 76; BP_DIAS 28; BP_DIAS 88
[2021-07-04] MEDS: ASPIRIN 81 MG TAB.CHEW PO SCH (09:34)
[2021-07-04] MEDS: NICOTINE 14 MG/24HR PATCH TD SCH (09:34)
[2021-07-04] MEDS: THIAMINE HCL 100 MG TABLET PO SCH (09:35)
[2021-07-04] MEDS: METFORMIN HCL 500 MG TABLET PO SCH ×2 (09:35→17:09)
[2021-07-04] MEDS: ESCITALOPRAM OXALATE 10 MG TABLET PO SCH (09:35)
[2021-07-04] MEDS: FINASTERIDE 5 MG TABLET PO SCH (09:35)
[2021-07-04] MEDS: DIGOXIN 125 MCG TABLET PO SCH (09:36)
[2021-07-04] MEDS: AMLODIPINE 10 MG TABLET PO SCH (09:37)
[2021-07-04] MEDS: APIXABAN 5 MG TABLET PO SCH ×2 (09:38→20:04)
[2021-07-04] MEDS: MEMANTINE HCL 10 MG TABLET PO SCH ×2 (09:42→17:09)
[2021-07-04] MEDS: FLUTICASONE/VILANTEROL 1 EACH BLST.W.DEV IH SCH (09:42)
--- NOTE | 2021-07-04 14:24 | NUR ---
Participated fairly well with his therapy, had been contienent of his bladder uses urinal, place with in his reach , safety reviewed emphasized, making his simple needs known to the staff, denies any discomfort
[2021-07-04] MEDS: INSULIN REGULAR, HUMAN 300 UNIT/3 ML VIAL SQ PRN ×2 (14:27→20:01)
[2021-07-04] MEDS: CEFTRIAXONE 1 G in IV DEXTROSE 5% 50 ML IV SCH (14:40)
--- NOTE | 2021-07-04 15:12 | NUR ---
INDIVIDUALIZED PLAN OF CARE
[2021-07-04 15:38] VITALS: BP 109/64
--- NOTE | 2021-07-04 18:28 | NUR ---
HOB slightly elevated , remains with 02 at 3 liters via NC sat.97-98%
[2021-07-04 20:00] VITALS: BP 129/73
[2021-07-04] MEDS: risperiDONE 1 MG TABLET PO SCH (20:04)
[2021-07-04] MEDS: DONEPEZIL 5 MG TABLET PO SCH (20:04)
[2021-07-04] MEDS: TAMSULOSIN HCL 0.4 MG CAP.SR.24H PO SCH (20:04)
[2021-07-05 04:00] VITALS: BP 130/73
[2021-07-05 04:48] VITALS: BP 130/73
--- NOTE | 2021-07-05 05:54 | NUR ---
Pt slept well throughout the night. Titrated O2 to 1L on NC saturating at 98%, tolerating. No signs of acute distress. Pt uses urinal. Urine clear and yellow, no foul odor. PICC Line in IZZY, 3 Lumen flushed intact and patent. IV in R wrist, heplocked. Compliant with medication and care. Call lights within reach. Safety measures maintained. Will endorse to am shift.
[2021-07-05] MEDS: PANTOPRAZOLE SODIUM 40 MG TABLET.DR PO SCH (06:18)
[2021-07-05] MEDS: BLOOD SUGAR DIAGNOSTIC 1 EACH STRIP VI SCH ×4 (06:34→20:35)
[2021-07-05 07:57] VITALS: BP 100/66
[2021-07-05] MEDS: METFORMIN HCL 500 MG TABLET PO SCH ×2 (08:00→17:15)
[2021-07-05] MEDS: ESCITALOPRAM OXALATE 10 MG TABLET PO SCH (08:00)
[2021-07-05] MEDS: APIXABAN 5 MG TABLET PO SCH ×2 (08:01→20:29)
[2021-07-05] MEDS: THIAMINE HCL 100 MG TABLET PO SCH (08:03)
[2021-07-05] MEDS: FINASTERIDE 5 MG TABLET PO SCH (08:03)
[2021-07-05] MEDS: MEMANTINE HCL 10 MG TABLET PO SCH ×2 (08:03→16:25)
[2021-07-05] MEDS: ASPIRIN 81 MG TAB.CHEW PO SCH (08:03)
[2021-07-05] MEDS: AMLODIPINE 10 MG TABLET PO SCH (08:05)
[2021-07-05] MEDS: FLUTICASONE/VILANTEROL 1 EACH BLST.W.DEV IH SCH (08:05)
[2021-07-05] MEDS: NICOTINE 14 MG/24HR PATCH TD SCH (08:05)
[2021-07-05] MEDS: DIGOXIN 125 MCG TABLET PO SCH (08:06)
--- NOTE | 2021-07-05 11:19 | NUR ---
WOUND CARE CONSULT: PT PRESENTS WITH SCARRING TO BILATERAL BUTTOCKS AND RAISED FIRM AREA TO RT UPPER ARM, PRESENT ON ADMISSION. DR CHRISTEN ACEVEDO NOTIFIED OF SURGICAL CONSULT. MD IN AGREEMENT WITH PLAN OF CARE.
[2021-07-05] MEDS: CEFTRIAXONE 1 G in IV DEXTROSE 5% 50 ML IV SCH (11:54)
[2021-07-05] MEDS: INSULIN REGULAR, HUMAN 300 UNIT/3 ML VIAL SQ PRN ×2 (11:54→20:37)
[2021-07-05 16:00] VITALS: BP 120/69
--- NOTE | 2021-07-05 19:30 | NUR ---
Patient remained stable during the shift. no distress identified. Kept call light within reach. All due meds given. all needs attended. Safety measures maintained. Will endorse to the next shift for continuity of care.
[2021-07-05 20:00] VITALS: BP 142/60
[2021-07-05] MEDS: TAMSULOSIN HCL 0.4 MG CAP.SR.24H PO SCH (20:27)
[2021-07-05] MEDS: risperiDONE 1 MG TABLET PO SCH (20:27)
[2021-07-05] MEDS: DONEPEZIL 5 MG TABLET PO SCH (20:27)
--- NOTE | 2021-07-06 01:36 | NUR ---
Resting in bed upon initial rounds. AAOx 3-4 All needs attended and met. On continous O2 @ 1L via nasal cannula, pulse Ox 96%. Kept comfortable. All due meds given without difficulty. Needs attended. Fall precautions maintained. No acute distress noted. Uses urinal. Will monitor patient.
[2021-07-06 04:11] VITALS: BP 135/74
[2021-07-06] MEDS: PANTOPRAZOLE SODIUM 40 MG TABLET.DR PO SCH (06:21)
[2021-07-06] MEDS: BLOOD SUGAR DIAGNOSTIC 1 EACH STRIP VI SCH ×4 (06:36→20:42)
[2021-07-06 08:03] VITALS: BP 110/62
[2021-07-06] MEDS: ASPIRIN 81 MG TAB.CHEW PO SCH (09:22)
[2021-07-06] MEDS: THIAMINE HCL 100 MG TABLET PO SCH (09:22)
[2021-07-06] MEDS: FINASTERIDE 5 MG TABLET PO SCH (09:22)
[2021-07-06] MEDS: AMLODIPINE 10 MG TABLET PO SCH (09:22)
[2021-07-06] MEDS: DIGOXIN 125 MCG TABLET PO SCH (09:23)
[2021-07-06] MEDS: MEMANTINE HCL 10 MG TABLET PO SCH ×2 (09:23→17:04)
[2021-07-06] MEDS: METFORMIN HCL 500 MG TABLET PO SCH ×2 (09:24→17:04)
[2021-07-06] MEDS: FLUTICASONE/VILANTEROL 1 EACH BLST.W.DEV IH SCH (09:24)
[2021-07-06] MEDS: OXYMETAZOLINE NASAL 0.05% 15 ML SPRAY NS PRN (09:24)
[2021-07-06] MEDS: NICOTINE 14 MG/24HR PATCH TD SCH (09:25)
[2021-07-06] MEDS: ESCITALOPRAM OXALATE 10 MG TABLET PO SCH (09:25)
[2021-07-06] MEDS: APIXABAN 5 MG TABLET PO SCH ×2 (09:30→20:41)
[2021-07-06] MEDS ORDERED: LIDOCAINE-MPF 1% 5 ML AMPUL INJ ONE (11:45)
[2021-07-06 12:00] VITALS: BP 91/62
[2021-07-06] MEDS ORDERED: LIDOCAINE 1% 30 ML VIAL INJ ONE (12:00)
[2021-07-06] MEDS ORDERED: HYDROCODONE/APAP 5-325MG TABLET PO ONE (12:15)
[2021-07-06] MEDS: CEFTRIAXONE 1 G in IV DEXTROSE 5% 50 ML IV SCH (12:15)
--- NOTE | 2021-07-06 12:20 | NUR ---
patient refused insulin coverage, risks and benefits explained, patient verbalized understanding of it
--- NOTE | 2021-07-06 15:14 | NUR ---
I & D done to right upper arm boil done by [employer] WR[employer] Juli, dressing daily as ordered. culture sent to lab.
--- NOTE | 2021-07-06 15:41 | NUR ---
patient refused insulin coverage, risks and benefits explained, patient verbalized understanding of it
[2021-07-06 16:00] VITALS: BP 104/54
[2021-07-06] MEDS: risperiDONE 1 MG TABLET PO SCH (20:37)
[2021-07-06] MEDS: TAMSULOSIN HCL 0.4 MG CAP.SR.24H PO SCH (20:37)
[2021-07-06] MEDS: DONEPEZIL 5 MG TABLET PO SCH (20:37)
[2021-07-06] MEDS: INSULIN REGULAR, HUMAN 300 UNIT/3 ML VIAL SQ PRN (20:45)
[2021-07-06 20:53] VITALS: BP 116/73
--- NOTE | 2021-07-07 04:36 | NUR ---
AAOx4 No acute distress noted. Fall precautions maintained. Needs attended. S/P I & D of the right upper arm, with dressing clean dry and intact. On 1L O2 via nasal cannula. VSS. Will monitor patient. Continent of bowel and bladder. Voiding well in the urinal. Left upper triple lumen PICC intact flush and patent. No complaints presented during the shift.
[2021-07-07 05:45] VITALS: BP 98/62
[2021-07-07] MEDS: PANTOPRAZOLE SODIUM 40 MG TABLET.DR PO SCH (06:08)
[2021-07-07] MEDS: BLOOD SUGAR DIAGNOSTIC 1 EACH STRIP VI SCH ×4 (06:33→20:49)
[2021-07-07] MEDS: NICOTINE 14 MG/24HR PATCH TD SCH (08:17)
[2021-07-07] MEDS: METFORMIN HCL 500 MG TABLET PO SCH ×2 (08:17→17:05)
[2021-07-07] MEDS: THIAMINE HCL 100 MG TABLET PO SCH (08:18)
[2021-07-07] MEDS: FINASTERIDE 5 MG TABLET PO SCH (08:18)
[2021-07-07] MEDS: ASPIRIN 81 MG TAB.CHEW PO SCH (08:18)
[2021-07-07] MEDS: MEMANTINE HCL 10 MG TABLET PO SCH ×2 (08:19→16:22)
[2021-07-07] MEDS: DIGOXIN 125 MCG TABLET PO SCH (08:19)
[2021-07-07] MEDS: ESCITALOPRAM OXALATE 10 MG TABLET PO SCH (08:19)
[2021-07-07] MEDS: APIXABAN 5 MG TABLET PO SCH ×2 (08:20→20:12)
[2021-07-07] MEDS: AMLODIPINE 10 MG TABLET PO SCH (08:21)
[2021-07-07 08:40] VITALS: BP 98/61
[2021-07-07] MEDS: FLUTICASONE/VILANTEROL 1 EACH BLST.W.DEV IH SCH (08:53)
[2021-07-07] MEDS: INSULIN REGULAR, HUMAN 300 UNIT/3 ML VIAL SQ PRN (11:20)
[2021-07-07 15:43] VITALS: BP 128/67
--- NOTE | 2021-07-07 18:42 | NUR ---
PATIENT REMAINED STABLE DURING THE SHIFT. DENIES PAIN/DISCOMFORT. SAFETY MEASURES MAINTAINED. KEPT CALL LIGHT WITHIN REACH. ALL NEEDS ATTENDED, DUE MEDS GIVEN. WILL ENDORSE TO THE NEXT SHIFT FOR CONTINUITY OF CARE.
[2021-07-07 19:55] VITALS: BP 96/49
[2021-07-07] MEDS: TAMSULOSIN HCL 0.4 MG CAP.SR.24H PO SCH (20:12)
[2021-07-07] MEDS: DONEPEZIL 5 MG TABLET PO SCH (20:12)
[2021-07-07] MEDS: risperiDONE 1 MG TABLET PO SCH (20:12)
[2021-07-08 04:29] VITALS: BP 108/48
[2021-07-08] MEDS: PANTOPRAZOLE SODIUM 40 MG TABLET.DR PO SCH (06:04)
[2021-07-08] MEDS: BLOOD SUGAR DIAGNOSTIC 1 EACH STRIP VI SCH (06:32)
[2021-07-08] MEDS: NICOTINE 14 MG/24HR PATCH TD SCH (08:24)
[2021-07-08] MEDS: ASPIRIN 81 MG TAB.CHEW PO SCH (08:24)
[2021-07-08] MEDS: METFORMIN HCL 500 MG TABLET PO SCH (08:24)
[2021-07-08] MEDS: FINASTERIDE 5 MG TABLET PO SCH (08:24)
[2021-07-08 08:25] VITALS: BP 109/51
[2021-07-08] MEDS: ESCITALOPRAM OXALATE 10 MG TABLET PO SCH (08:25)
[2021-07-08] MEDS: MEMANTINE HCL 10 MG TABLET PO SCH (08:25)
[2021-07-08] MEDS: THIAMINE HCL 100 MG TABLET PO SCH (08:25)
[2021-07-08] MEDS: DIGOXIN 125 MCG TABLET PO SCH (08:25)
[2021-07-08] MEDS: AMLODIPINE 10 MG TABLET PO SCH (08:25)
[2021-07-08] MEDS: APIXABAN 5 MG TABLET PO SCH (08:27)
[2021-07-08] MEDS: FLUTICASONE/VILANTEROL 1 EACH BLST.W.DEV IH SCH (08:27)
[2021-07-08] MEDS ORDERED: MULTIVITAMINS,THERAPEUTIC TABLET PO SCH (09:00)
--- NOTE | 2021-07-08 15:10 | NUR ---
DISCHARGED PATIENT ON STABLE CONDITION VIA PRIVATE CAR. NO PAIN OR DISTRESS IDENTIFIED. SKIN INTACT, PHOTO TAKEN IN CHART. BELONGING LIST SIGNED. DC INSTRUCTIONS GIVEN AND NOTED WITH UNDERSTANDING. NO CONCERNS IDENTIFIED DURING THE SHIFT.
--- NOTE | 2021-07-08 16:00 | NUR ---
INTERDISCIPLINARY TEAM CONFERENCE THIS WAS OBSERVED AND DONE ON 07/03/21 13:00
--- NOTE | 2021-07-12 15:59 | NUR ---
INTERDISCIPLINARY TEAM CONFERENCE
== END 2021-07-08 15:10 | disposition home or self-care (01) | DRG 91 ==
PROVIDERS: ADMIT Physical Medicine & Rehabilitation Pain Medicine; ATTEND Physical Medicine & Rehabilitation Pain Medicine
PROC: 0H9BXZZ Drainage of Right Upper Arm Skin, External Approach (ICD-10-PCS; principal; 2021-07-06)
DX: G92.8 Other toxic encephalopathy (principal); J96.00 Acute respiratory failure, unspecified whether with hypoxia or hypercapnia; E43 Unspecified severe protein-calorie malnutrition; I50.32 Chronic diastolic (congestive) heart failure; I48.20 Chronic atrial fibrillation, unspecified; D68.59 Other primary thrombophilia; L02.413 Cutaneous abscess of right upper limb; J44.9 Chronic obstructive pulmonary disease, unspecified; I11.0 Hypertensive heart disease with heart failure; E66.9 Obesity, unspecified; R53.1 Weakness; E11.65 Type 2 diabetes mellitus with hyperglycemia; F10.10 Alcohol abuse, uncomplicated; F17.210 Nicotine dependence, cigarettes, uncomplicated; F01.50 Vascular dementia, unspecified severity, without behavioral disturbance, psychotic disturbance, mood disturbance, and anxiety; F02.80 Dementia in other diseases classified elsewhere, unspecified severity, without behavioral disturbance, psychotic disturbance, mood disturbance, and anxiety; G30.9 Alzheimer's disease, unspecified; D53.9 Nutritional anemia, unspecified; E61.1 Iron deficiency; E83.42 Hypomagnesemia; M47.812 Spondylosis without myelopathy or radiculopathy, cervical region; H05.20 Unspecified exophthalmos; J32.4 Chronic pansinusitis; J34.2 Deviated nasal septum; N40.0 Benign prostatic hyperplasia without lower urinary tract symptoms; K21.9 Gastro-esophageal reflux disease without esophagitis; Z91.81 History of falling
CPT/HCPCS: 36415; 82652; 83735; 84100; 84443; 85025; 87070; 97161; 97535-GO-CO; J0696; J1815; J2001; J7050; J7060